=== PATIENT | female | born 1995 | race Caucasian/White ===

== ENCOUNTER 2021-08-11 09:56 | Emergency (ER) | payer MEDICAID, SELFPAY ==
[2021-08-11 10:00] VITALS: BP 141/84; PULSE 95; RESP 16; TEMP 36.6; O2SAT 99; BMI 30.7
--- NOTE | 2021-08-11 10:17 | ED_ITS ---
HPI - General Adult General Chief complaint: Abdominal Pain Stated complaint: abd pain Time Seen by Provider: 08/11/21 10:14 Source: patient Mode of arrival: ambulatory Limitations: no limitations History of Present Illness HPI narrative: Patient is a 25 year old female presenting to the emergency department today with lower abdominal pain and nausea. Patient states that she has had generalized abdominal pain and nausea for the last few days. Patient states that her last period was in June of 2021. Patient denies any dizziness, lightheadedness, vomiting, fever, chills, blurry vision, double vision, loss of vision, chest pain, difficulty breathing, shortness of breath, back pain, night sweats, pain with urination, increased urinary frequency, increased urinary urgency, blood in her urine or stool, syncope or a near syncopal episode, recent trauma or falls, bowel incontinence, bladder incontinence, bowel retention, bladder retention, or any other complaints at this time. Onset (ago): day(s) Location: abdomen Radiation: non-radiation Severity: mild Severity scale (1-10): 3 Quality: dull Pain Consistency: constant Relieving factors: none Exacerbating factors: none Associated symptoms: denies other symptoms Treatments prior to arrival: none Related Data Previous Rx's Medication Instructions Recorded ondansetron 4 mg disintegrating 4 mg PO Q8H 3 Days #9 tab 08/11/21 tablet Allergies Allergy/AdvReac Type Severity Reaction Status Date / Time No Known Allergies Allergy Verified 08/11/21 10:04 Review of Systems Constitutional: Constitutional: Reports no additional constitutional complaints, Denies chills, Denies fever(s) and Denies night sweats Eyes: Eyes: Reports no additional eye complaints, Denies blurry vision, Denies change in vision, Denies diplopia, Denies eye discharge, Denies loss of vision and Denies eye pain ENT: Denies dizziness Cardiovascular: Cardiovascular: Reports no additional cardiovascular complaints, Denies chest pain, Denies lightheadedness, Denies Loss of Consciousness and Denies dyspnea Respiratory: Respiratory: Reports no additional respiratory complaints and Denies dyspnea Gastrointestinal: Gastrointestinal: Reports no additional gastrointestinal complaints, Reports abdominal pain, Denies melena, Denies hematochezia, Denies change in bowel habits, Denies change in stool character, Reports nausea and Denies vomiting Genitourinary: Genitourinary: Denies hematuria, Denies urinary frequency, Denies dysuria, Denies urinary incontinence, Denies urinary hesitancy and Denies urinary urgency Musculoskeletal: Musculoskeletal: Reports no additional musculoskeletal complaints, Denies numbness and Denies tingling Neurologic: Denies dizziness, Denies loss of vision, Denies numbness and Denies tingling Psychiatric: Psychiatric: Reports no additional psychiatric complaints Endocrine: Endocrine: Reports no additional endocrine complaints Hematologic/Lymphatic: Hematologic/Lymphatic: Reports no additional hematologic/lymphatic complaints Allergic/Immunologic: Allergic/Immunologic: Reports no additional allergic/immunologic complaints FOR[facility], [facility] Past Medical History Attestation statement: The following information was validated with the patient. Source: old records reviewed Social History Social History Advance Directives: No Advance Directives Information Provided: No Physical Exam ED Vital Signs: Vital Signs - 24 hr 08/11/21 10:00 Temperature 97.9 F Pulse Rate 95 Respiratory Rate 16 Blood Pressure 141/84 H Pulse Oximetry 99 BMI result Body Mass Index 30.7 Const General: cooperative, no acute distress, alert and awake Nutritional Appearance: well nourished Orientation/consciousness: patient oriented x3 Limitations: no limitations HENMT Head: Yes normal to inspection and Yes atraumatic Ears: hearing grossly normal bilaterally and external ears normal General nose exam: Normal external nose present, no nasal discharge noted and no epistaxis Face and sinus: Yes normal facial exam, No abrasion and No laceration Mouth: Normal oral and palatal mucosa present, no drooling and no muffled voice Eyes General: appearance normal, both eyes and all related structures Periorbital: periorbital findings normal Eyelids: Yes eyelids normal Conjunctivae: conjunctivae normal Pupils: Equal, round and reactive pupils present EOM: EOMs intact bilaterally Neck Neck: Yes normal visual inspection, Yes full ROM and Yes no lymphadenopathy Chest Chest palpation & inspection: normal inspection of the chest Resp Effort & Inspection: normal respiratory effort and able to speak in complete sentences Auscultation: clear to auscultation bilaterally Cardio Rate: regular rate Rhythm: regular rhythm GI Inspection: Yes normal to inspection Palpation (GI): Soft to palpation, not firm, nontender, no guarding and not rigid Neuro General: patient oriented x3 and moves all extremities Cranial nerves: Yes Equal, round and reactive pupils present Cognition (Neuro): normal cognition Motor exam (neuro): 5/5 motor strength present throughout Sensory Exam: Normal double simultaneous stimulation for sensation Coordination: [id number] test normal Extrem General: Yes normal to inspection, Yes full ROM and Yes capillary refill normal Psych Appearance: grossly normal Mental Status: mental status grossly normal Affect: normal affect Attitude: cooperative Thought process: Normal thought process present Thought content: Normal thought content present Insight: Good insight present (Psych) Medical Decision Making MDM Narrative Medical decision making narrative: Patient is a 25 year old female presenting to the emergency department today with generalized abdominal pain and nausea. Patient initially reported vomiting but upon my questioning, states that she has only been nauseous and has not actually vomited. Patient's physical exam was unremarkable. Patient's blood work was unremarkable. Patient's urine showed no acute process or . I explained my physical exam findings as well as all test results to the patient. I answered all questions asked by the patient. I stressed the importance of the patient taking her medication as prescribed. I stressed the importance of the patient following up with her primary care provider. I stressed the importance of the patient returning to the emergency department immediately if her symptoms were to worsen or if she were to develop any dizziness, shortness of breath, difficulty breathing, chest pain, blurry vision, loss of vision, nausea, vomiting, abdominal pain, fever, chills, back pain, or any other complaints. Patient verbalized agreement and understanding with this treatment plan and discharge. Differential Diagnosis Differential Diagnosis: gastroenteritis, nausea Medical Records Medical records reviewed: Yes I reviewed the patient's medical records. Lab Data Lab results reviewed: Yes I reviewed the patient's lab results. Result diagrams: 08/11/21 11:15 08/11/21 11:15 Labs: Lab Results 08/11/21 08/11/21 08/11/21 Range/Units 11:06 11:06 11:15 WBC 5.3 (4.8-10.8) X10*3/uL RBC 5.09 (4.20-5.50) X10*6/uL Hgb 13.7 (12.0-16.0) g/dl Hct 42.3 (37.0-47.0) % MCV 83.1 (80.0-98.0) fL MCH 26.9 L (27.0-33.0) pg MCHC 32.4 (31.0-35.0) g/dl RDW 12.8 (11.0-16.0) % Plt Count 196 (160-400) X10*3/uL MPV 11.4 (9.4-12.3) fL Immature Gran % (Auto) 0.0 (0.0-0.4) % Neut % (Auto) 36.5 L (45-73) % Lymph % (Auto) 40.4 H (20-40) % Dewitt % (Auto) 22.3 H (2-11) % Eos % (Auto) 0.4 (0-4) % Baso % (Auto) 0.4 (0-2) % Lymph # (Auto) 2.1 (1.2-4.9) X10*3/uL Dewitt # (Auto) 1.2 (0.1-1.2) X10*3/uL Eos # (Auto) 0.0 (0.0-0.4) X10*3/uL Baso # (Auto) 0.0 (0.0-0.2) X10*3/uL Abs Immat Gran (auto) 0.00 (0.00-0.03) X10*3/uL Absolute Neuts (auto) 1.9 L (2.0-8.3) x10*3/uL Absolute Nucleated RBC 0.000 (0.0-0.012) X10*3/uL Nucleated RBC % (auto) 0.0 (0.0-0.2) /100WBC Smear Tech's Comments VERIFIED Sodium (135-145) mmol/L Potassium (3.3-5.1) mmol/L Chloride (96-108) mmol/L Carbon Dioxide (22-29) mmol/L Anion Gap (12-20) BUN (9-16) mg/dL Creatinine (0.5-1.4) mg/dL Estim Creat Clear Calc Estimated GFR Random Glucose (60-115) mg/dL Calcium (8.4-10.2) mg/dL Total Bilirubin (0.0-1.0) mg/dL AST (5-31) U/L ALT (0-31) U/L Alkaline Phosphatase (39-117) U/L Total Protein (6.5-8.0) g/dL Albumin (3.5-5.0) g/dL Beta HCG, Quant mIU/mL Urine Color YELLOW Urine Appearance CLOUDY Urine pH 7.0 (5.0-8.0) Ur Specific [place] 1.025 (1.005-1.025) Urine Protein TRACE (NEG-TRACE) MG/DL Urine Glucose (UA) NEG (NEG) MG/DL Urine Ketones NEG (NEG) MG/DL Urine Blood NEG (NEG) Urine Nitrite NEG (NEG) Ur Leukocyte Esterase NEG (NEG) Urine Test NEGATIVE (NEGATIVE) 08/11/21 Range/Units 11:15 WBC (4.8-10.8) X10*3/uL RBC (4.20-5.50) X10*6/uL Hgb (12.0-16.0) g/dl Hct (37.0-47.0) % MCV (80.0-98.0) fL MCH (27.0-33.0) pg MCHC (31.0-35.0) g/dl RDW (11.0-16.0) % Plt Count (160-400) X10*3/uL MPV (9.4-12.3) fL Immature Gran % (Auto) (0.0-0.4) % Neut % (Auto) (45-73) % Lymph % (Auto) (20-40) % Dewitt % (Auto) (2-11) % Eos % (Auto) (0-4) % Baso % (Auto) (0-2) % Lymph # (Auto) (1.2-4.9) X10*3/uL Dewitt # (Auto) (0.1-1.2) X10*3/uL Eos # (Auto) (0.0-0.4) X10*3/uL Baso # (Auto) (0.0-0.2) X10*3/uL Abs Immat Gran (auto) (0.00-0.03) X10*3/uL Absolute Neuts (auto) (2.0-8.3) x10*3/uL Absolute Nucleated RBC (0.0-0.012) X10*3/uL Nucleated RBC % (auto) (0.0-0.2) /100WBC Smear Tech's Comments Sodium 139 (135-145) mmol/L Potassium 4.3 (3.3-5.1) mmol/L Chloride 106 (96-108) mmol/L Carbon Dioxide 27 (22-29) mmol/L Anion Gap 10 L (12-20) BUN 8 L (9-16) mg/dL Creatinine 0.75 (0.5-1.4) mg/dL Estim Creat Clear Calc 124.8 Estimated GFR > 60 Random Glucose 93 (60-115) mg/dL Calcium 9.3 (8.4-10.2) mg/dL Total Bilirubin 0.2 (0.0-1.0) mg/dL AST 26 (5-31) U/L ALT 25 (0-31) U/L Alkaline Phosphatase 82 (39-117) U/L Total Protein 7.5 (6.5-8.0) g/dL Albumin 4.2 (3.5-5.0) g/dL Beta HCG, Quant < 2 mIU/mL Urine Color Urine Appearance Urine pH (5.0-8.0) Ur Specific [place] (1.005-1.025) Urine Protein (NEG-TRACE) MG/DL Urine Glucose (UA) (NEG) MG/DL Urine Ketones (NEG) MG/DL Urine Blood (NEG) Urine Nitrite (NEG) Ur Leukocyte Esterase (NEG) Urine Test (NEGATIVE) Discharge Plan Discharge Clinical Impression: Gastroenteritis Patient Disposition: Home, Self-Care Instructions: Gastroenteritis (DC) Additional Instructions: Follow up with your primary care provider. Return to the emergency department immediately if your symptoms worsen or if you develop any dizziness, shortness of breath, difficulty breathing, chest pain, blurry vision, loss of vision, nausea, vomiting, abdominal pain, fever, chills, back pain, or any other complaints. Prescriptions: New ondansetron 4 mg tablet,disintegrating 4 mg PO Q8H 3 Days Qty: 9 0RF Referrals: [facility] [place] Family [facility] [Provider Group] [facility] [place] [facility] [Provider Group] [facility] [place] [facility] [Provider Group] Stand Alone Forms: Work/School Release Interventions: ED Discharge Assessment Last Done: 08/11/21 12:49 Discharge Date/Time: 08/11/21 12:51 Print Language: Occitan
[2021-08-11 11:20] LABS: Basophils Percent Auto 0.4 % (0-2); Eosinophils Percent Auto 0.4 % (0-4); Hematocrit 42.3 % (37.0-47.0); Hemoglobin 13.7 g/dl (12.0-16.0); Lymphocytes Absolute Auto 2.1 X10*3/uL (1.2-4.9); Lymphocytes Percent Auto 40.4 % (20-40); MANUAL DIFF FLAG SCAN; Mean Corpuscular HGB Conc 32.4 g/dl (31.0-35.0); Mean Corpuscular Hemoglobin 26.9 pg (27.0-33.0); Mean Corpuscular Volume 83.1 fL (80.0-98.0); Mean Platelet Volume 11.4 fL (9.4-12.3); Monocytes Absolute Auto 1.2 X10*3/uL (0.1-1.2); Monocytes Percent Auto 22.3 % (2-11); Neutrophils Absolute Auto 1.9 x10*3/uL (2.0-8.3); Neutrophils Percent Auto 36.5 % (45-73); Platelet Count 196 X10*3/uL (160-400); Red Blood Count 5.09 X10*6/uL (4.20-5.50); Red Cell Distribution Width 12.8 % (11.0-16.0); SCAN SMEAR FLAG 1; White Blood Count 5.3 X10*3/uL (4.8-10.8)
[2021-08-11 11:23] LABS: UPreg QC Valid YES; Urine Pregnancy NEGATIVE (NEGATIVE)
[2021-08-11 11:25] LABS: Appearance Urine CLOUDY; Color Urine YELLOW; Glucose Urine UA NEG (NEG); Leukocyte Esterase Urine NEG (NEG); Nitrite Urine NEG (NEG); Specific Gravity - Urine 1.025 (1.005-1.025); Urine Blood NEG (NEG); Urine Ketones NEG (NEG); Urine Protein TRACE MG/DL (NEG-TRACE)
[2021-08-11 11:37] LABS: Alanine Aminotransferase 25 U/L (0-31); Albumin Level 4.2 g/dL (3.5-5.0); Alkaline Phosphatase 82 U/L (39-117); Anion Gap 10 (12-20); Aspartate Amino Transferase 26 U/L (5-31); Bilirubin Total 0.2 mg/dL (0.0-1.0); Blood Urea Nitrogen 8 mg/dL (9-16); Calcium 9.3 mg/dL (8.4-10.2); Carbon Dioxide 27 mmol/L (22-29); Chloride 106 mmol/L (96-108); Creatinine Clr Calc Pharmacy 124.8; Estimated Glomerular Filt Rate > 60; Glucose Random 93 mg/dL (60-115); Potassium 4.3 mmol/L (3.3-5.1); Sodium 139 mmol/L (135-145); Total Protein 7.5 g/dL (6.5-8.0)
[2021-08-11 11:40] LABS: SLIDE REVIEW VERIFIED
[2021-08-11 11:43] LABS: HCG Quantitative < 2 mIU/mL
== END 2021-08-11 12:51 | disposition home or self-care (01) ==
PROVIDERS: Physician Assistant Medical; Emergency Provider Emergency Medicine
DX: K52.9 Noninfective gastroenteritis and colitis, unspecified (principal); R10.30 Lower abdominal pain, unspecified; Z79.899 Other long term (current) drug therapy
CPT/HCPCS: 36415; 80053; 81003; 81025; 84702; 85025; 99281; 99283

== ENCOUNTER 2021-09-02 11:19 | Emergency (ER) | payer OTHER, SELFPAY ==
--- NOTE | ~2021-09-02 | US_ITS ---
EXAMINATION: US PELVIS CLINICAL INFORMATION: Abnormal vaginal bleeding COMPARISON: None TECHNIQUE: Ultrasound of the pelvis is performed using both transabdominal and transvaginal transducers along with Doppler. Transvaginal imaging is performed due to inadequate visualization transabdominally. FINDINGS: Uterus: The uterus is anteverted and measures 7.9 x 4.7 x 6.6 cm The double wall endometrial thickness is 0.2 cm slightly heterogeneous.. There is a hypoechoic lesion within the endometrium measuring 0.4 x 0.3 x 0.4 cm suggestive of small polyp No visible fibroid. Adnexa: Both ovaries are visualized. There is normal color flow to the adnexa. There is no ovarian torsion. There is no pelvic ascites or fluid collection. Right ovary measures 5.4 x 2.6 x 3.4 CM and volume 23.4 mL. There is anechoic cyst measuring 4.5 x 1.5 x 1.7 cm. A second cyst with septation measures 2.5 x 2.5 x 2.3 cm. Left ovary measures 2.9 x 2.1 x 1.9 cm and volume 6.1 mL. There is a complex cyst measuring 1.3 x 1.1 x 2.1 cm. US/US pelvic and transvaginal IMPRESSION: Heterogeneous uterus and endometrium with a likely small polyp within the endometrial canal. Bilateral ovarian cystic complex cyst is noted in the left ovary. There is no free fluid in cul-de-sac
--- NOTE | ~2021-09-02 | CT_ITS ---
EXAMINATION: CT ABDOMEN AND PELVIS WITHOUT CONTRAST CLINICAL INFORMATION: Left flank/suprapubic abdominal pain COMPARISON: Same day renal ultrasound TECHNIQUE: Multidetector volumetric imaging was performed from the superior aspect of the liver through the pubic symphysis. Sagittal and coronal reformatted images were obtained on the technologist's workstation. This CT examination was performed using dose optimization techniques as appropriate, variously including the following: *Automated exposure control *Adjustment of mA and/or kV according to patient size (this includes techniques or standardized protocols for targeted exams where dose is matched to indication/reason for exam; i.e. extremities or head) *Use of iterative reconstruction technique DLP: 690 mGy-cm FINDINGS: Visualized lung bases are well aerated. The liver demonstrates normal size, contour and attenuation. The gallbladder is normal in appearance. The pancreas, spleen and adrenal glands are unremarkable. Symmetrically sized kidneys. No renal calculi or hydronephrosis bilaterally. Normal caliber loops of small and large bowel. Mild colonic stool burden. Normal appendix. Normal caliber abdominal aorta. No retroperitoneal lymphadenopathy. The bladder is normal in appearance. Unremarkable CT appearance of the uterus. Bilateral adnexal cysts are reidentified but better evaluated on corresponding pelvic ultrasound. No gross free pelvic fluid. No inguinal lymphadenopathy. No acute osseous abnormality. CT/CT abdomen pelvis wo con IMPRESSION: There is no CT evidence for acute abnormality within the abdomen or pelvis. Bilateral adnexal cysts are redemonstrated but better visualized on corresponding pelvic ultrasound. Fleischner guidelines were followed.
--- NOTE | ~2021-09-02 | US_ITS ---
EXAMINATION: US PELVIS CLINICAL INFORMATION: Abnormal vaginal bleeding COMPARISON: None TECHNIQUE: Ultrasound of the pelvis is performed using both transabdominal and transvaginal transducers along with Doppler. Transvaginal imaging is performed due to inadequate visualization transabdominally. FINDINGS: Uterus: The uterus is anteverted and measures 7.9 x 4.7 x 6.6 cm The double wall endometrial thickness is 0.2 cm slightly heterogeneous.. There is a hypoechoic lesion within the endometrium measuring 0.4 x 0.3 x 0.4 cm suggestive of small polyp No visible fibroid. Adnexa: Both ovaries are visualized. There is normal color flow to the adnexa. There is no ovarian torsion. There is no pelvic ascites or fluid collection. Right ovary measures 5.4 x 2.6 x 3.4 CM and volume 23.4 mL. There is anechoic cyst measuring 4.5 x 1.5 x 1.7 cm. A second cyst with septation measures 2.5 x 2.5 x 2.3 cm. Left ovary measures 2.9 x 2.1 x 1.9 cm and volume 6.1 mL. There is a complex cyst measuring 1.3 x 1.1 x 2.1 cm. US/US pelvic ovarian doppler IMPRESSION: Heterogeneous uterus and endometrium with a likely small polyp within the endometrial canal. Bilateral ovarian cystic complex cyst is noted in the left ovary. There is no free fluid in cul-de-sac
[2021-09-02 11:28] VITALS: BP 139/88; PULSE 112; RESP 18; TEMP 36.9; O2SAT 98; BMI 32.9
--- NOTE | 2021-09-02 15:27 | ED.FEMALEGU ---
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 She reports severe lower abdominal pain radiating to her left flank. She reports that her menstrual periods usually last 3 days with heavy bleeding then subsides over the next few days and usually completed or finished within 7 days. She reports she has never had her menstrual period for this long in the past. She denies any fevers, headaches, change in vision, nausea/vomiting, chest pain or shortness of breath, dyspnea on exertion, orthopnea, dysuria, hematuria, abnormal vaginal discharge, thoughts of STDs, rashes, recent falls or trauma to the abdomen or back, sick contacts or travel or any other symptoms complaints or concerns at this time. She reports that she does not believe she is at this time although did not take a home test. MD elicited complaint: vaginal bleeding and back pain Onset (ago): month(s) (1) Location of symptoms: suprapubic Severity: severe Female Urogenital Radiation: L Flank Severity scale (1-10): >10 Quality of pain: cramping, sharp and aching Consistency: constant and progressively worsening Vaginal discharge: none Vaginal bleeding: heavy, bright red, clots and # pads per hour (1) Exacerbating factors: none Relieving factors: none Associated symptoms: abdominal pain and other (dizziness started yesterday ) Treatment prior to arrival: none Sexual activity: Yes Patient : No Possible : at home test not taken Related Data : 4 Para: 0 Total number of abortions (spontaneous and elective): 4 Previous Rx's Medication Instructions Recorded ondansetron 4 mg disintegrating 4 mg PO Q8H 3 days #9 tabs 08/11/21 tablet acetaminophen 500 mg tablet 1,000 mg PO QID PRN fever or pain 09/02/21 (Tylenol Extra Strength) #14 tabs desogestrel 0.15 mg-ethinyl 1 tab PO DAILY #84 tabs 09/02/21 estradiol 0.03 mg tablet (Apri) nitrofurantoin 100 mg PO BID 7 days #14 caps 09/02/21 monohydrate/macrocrystals 100 mg capsule (Macrobid) oxycodone 5 mg tablet 5 mg PO Q6H PRN pain #14 tabs 09/02/21 Allergies Allergy/AdvReac Type Severity Reaction Status Date / Time No Known Allergies Allergy Verified 08/11/21 10:04 Review of Systems Review of Systems: Constitutional : No Fever, No Chills ENT/Mouth : No sore throat, No Rhinorrhea Eyes: No Eye Pain, No Redness Cardiovascular : No Chest Pain, No SOB Respiratory : No Cough, No Sputum, No Wheezing Gastrointestinal : + abdominal pain, No Nausea, No Vomiting, No Diarrhea Genitourinary : + irregular bleeding, + left falnk/back pain, No Dysuria, No Urinary Frequency Musculoskeletal : No Myalgias Skin : No rash Neuro : + dizziness, No Weakness, No Headache Psych : No Anxiety/Panic, No Depression Heme/Lymph: No bruising, No Lymphadenopathy Endocrine : No Polyuria, No Polydipsia Yes all other systems are reviewed and are negative [facility] Past Medical History Attestation statement: The following information was validated with the patient. Source: old records reviewed, obtained from family and nursing notes reviewed : 4 Para: 0 Total number of abortions (spontaneous and elective): 4 Physical Exam Vital Signs: Vital Signs: Last Vital Signs Temp 98.5 F 09/02/21 18:55 Pulse 74 09/02/21 18:55 Resp 18 09/02/21 18:55 BP 124/81 09/02/21 18:55 Pulse Ox 98 09/02/21 18:55 O2 Del Method 09/02/21 18:55 BMI result Body Mass Index 32.9 vital signs have been reviewed as normal and appeared to be correct. Blood pressure normal. Heart rate 112. Respiration rate normal. Temperature normal. Oxygen saturation normal. Appearance: Alert. Oriented X3. No acute distress. Head: Normal external exam. Normocephalic. Atraumatic. Eyes: PERRLA. EOMI. Conjunctiva and sclera normal. Eyelids normal. ENT: Pharynx normal. Uvula midline. Moist mucous membranes. No trismus noted. No drooling noted. No muffled voice noted. Neck: Normal inspection. Neck supple. FROM. No adenopathy. Thyroid Normal. No meningeal signs. No neck mass noted. CVS: Normal heart rate and rhythm. Heart sound normal. No murmurs noted. Pulses normal throughout. Respiratory: No respiratory distress. Painless inspiration. Breath sounds normal. No wheezes/rales/rhonchi noted. Chest nontender. No accessory muscle usage noted or decreased air movement noted. Abdomen: Soft and moderate tenderness palpation to the left lower quadrant/left flank/suprapubic area with guarding. Bowel sounds normal in all 4 quadrants. No distention noted. No organomegaly noted. No visible injury noted. Negative Rovsing sign. Negative obturator's sign. Negative psoas sign. Negative Gonzalez sign. : Supervised by ANGÉLICA Pressley. Normal external appearance of urethra. No lesions/lacerations or discharge or tenderness noted. Speculum exam normal appearance/palpation of vagina normal. No abnormal vaginal discharge noted. Otherwise no vaginal erythema. No foreign bodies noted. When I place the spectulum in she had a a puddle of blood and small amount of clots although no active bleeding. No vaginal laceration/lesions or noted. No tissue present in vagina. No vaginal mass noted. No vaginal swelling noted. No vaginal tenderness noted. Normal appearance of cervix. Normal palpation of cervix. Cervical os is closed. No abnormal cervical discharge noted. No cervical lesion/mass. No Bartholin cyst noted. No cervical motion tenderness noted. Negative chandelier sign. Normal bimanual exam. Uterine size normal. Bladder normal to palpation. Uterine consistency normal. Normal cervical palpation. Uterine mobility normal. Uterine shape normal. Normal adnexa. Normal rectovaginal exam. Back: + left CVA tenderness. No Right CVA tenderness noted. Full range of motion noted. Skin: Skin warm and dry. Normal skin color. Normal skin turgor. No rashes/lesions/lacerations noted. Extremities: No lower extremity edema. Extremities exhibit normal range of motion. Extremities nontender. Neuro: Oriented X 3. No motor deficit. No sensory deficit. Reflexes normal. Course Course Course Narrative: 13:20pm - 25-year-old female c a PMHX of 3-4 miscarriages and 1 ectopic presenting to the ED with complaints of abnormal vaginal bleeding for approximately 1 month which is worsened within the past few days worse she is now bleeding clots and since yesterday has been having some dizziness. She reports severe lower abdominal pain radiating to her left flank. She reports that her menstrual periods usually last 3 days with heavy bleeding then subsides over the next few days and usually completed or finished within 7 days. She reports she has never had her menstrual period for this long in the past. Plan: Labs, UA, gonorrhea/chlamydia swab, bacterial vaginosis swab, Trichomonas swab, yeast swab, pelvic/ovarian/transvaginal ultrasound, type and screen. Provide 4 mg of Zofran and 4 mg of morphine for the patient's pain and re-evaluate. Reevaluation(s) Reevaluation #1: - WBC at 11,000 - BUN 21. Otherwise all other labs WNL. - transvaginal/pelvic/Doppler ultrasound revealed polyps, bilateral ovarian cyst therefore I discussed this case with Dr. Capps he reports as long as the patient does not have any medical history and does not have any contraindications patient can be started on control Apri and he also wants to see her in the office and he will talk to her about her options. - will obtain a CT scan abdomen pelvis without IV contrast to evaluate for any other acute processes also waiting for UA for possible UTI versus pyelo will re-evaluate. Time: 17:40 Reevaluation #2: - CT scan of abdomen and pelvis revealed bilateral adnexal cyst otherwise no other acute processes noted. - therefore explained to the patient that she should give us a UA and that we will send her home with the control and symptomatic treatment instructions to follow-up with Dr. Capps and I explained her that he will be discussing with her many possible treatment options for further evaluation treatment. Patient understands agrees with this plan. Time: 17:57 MDM - Female Genitourinary Medical Records Attestation: I reviewed the patient's medical records. Lab Data Attestation: I reviewed the patient's lab results. Result diagrams: 09/02/21 16:25 09/02/21 16:13 Labs: Lab Results 09/02/21 09/02/21 09/02/21 Range/Units 16:13 16:25 16:25 WBC 11.6 H (4.8-10.8) X10*3/uL RBC 4.88 (4.20-5.50) X10*6/uL Hgb 13.0 (12.0-16.0) g/dl Hct 40.5 (37.0-47.0) % MCV 83.0 (80.0-98.0) fL MCH 26.6 L (27.0-33.0) pg MCHC 32.1 (31.0-35.0) g/dl RDW 12.8 (11.0-16.0) % Plt Count 257 D (160-400) X10*3/uL MPV 11.3 (9.4-12.3) fL Immature Gran % (Auto) 0.3 (0.0-0.4) % Neut % (Auto) 71.1 (45-73) % Lymph % (Auto) 21.2 (20-40) % Shannon % (Auto) 6.6 (2-11) % Eos % (Auto) 0.4 (0-4) % Baso % (Auto) 0.4 (0-2) % Lymph # (Auto) 2.5 (1.2-4.9) X10*3/uL Shannon # (Auto) 0.8 (0.1-1.2) X10*3/uL Eos # (Auto) 0.1 (0.0-0.4) X10*3/uL Baso # (Auto) 0.1 (0.0-0.2) X10*3/uL Abs Immat Gran (auto) 0.04 H (0.00-0.03) X10*3/uL Absolute Neuts (auto) 8.2 (2.0-8.3) x10*3/uL Absolute Nucleated RBC 0.000 (0.0-0.012) X10*3/uL Nucleated RBC % (auto) 0.0 (0.0-0.2) /100WBC PT 12.3 (9.9-13.0) SEC INR 1.1 (0.9-1.1) Sodium 138 (135-145) mmol/L Potassium 4.1 (3.3-5.1) mmol/L Chloride 105 (96-108) mmol/L Carbon Dioxide 21 L (22-29) mmol/L Anion Gap 16 (12-20) BUN 9 (9-16) mg/dL Creatinine 0.70 (0.5-1.4) mg/dL Estim Creat Clear Calc 123.7 Estimated GFR > 60 Random Glucose 70 (60-115) mg/dL Calcium 9.5 (8.4-10.2) mg/dL Magnesium 2.0 (1.6-2.6) mg/dL Total Bilirubin 0.3 (0.0-1.0) mg/dL AST 19 (5-31) U/L ALT 14 (0-31) U/L Alkaline Phosphatase 87 (39-117) U/L Total Protein 7.8 (6.5-8.0) g/dL Albumin 4.5 (3.5-5.0) g/dL Beta HCG, Quant < 2 mIU/mL Urine Color Urine Appearance Urine pH (5.0-8.0) Ur Specific Sherrill (1.005-1.025) Urine Protein (NEG-TRACE) MG/DL Urine Glucose (UA) (NEG) MG/DL Urine Ketones (NEG) MG/DL Urine Blood (NEG) Urine Nitrite (NEG) Ur Leukocyte Esterase (NEG) Urine RBC (0) /HPF Urine WBC (0-4) /HPF Ur Squamous Epith Cells /LPF Urine Bacteria /LPF Blood Type 09/02/21 09/02/21 Range/Units 16:25 18:30 WBC (4.8-10.8) X10*3/uL RBC (4.20-5.50) X10*6/uL Hgb (12.0-16.0) g/dl Hct (37.0-47.0) % MCV (80.0-98.0) fL MCH (27.0-33.0) pg MCHC (31.0-35.0) g/dl RDW (11.0-16.0) % Plt Count (160-400) X10*3/uL MPV (9.4-12.3) fL Immature Gran % (Auto) (0.0-0.4) % Neut % (Auto) (45-73) % Lymph % (Auto) (20-40) % Shannon % (Auto) (2-11) % Eos % (Auto) (0-4) % Baso % (Auto) (0-2) % Lymph # (Auto) (1.2-4.9) X10*3/uL Shannon # (Auto) (0.1-1.2) X10*3/uL Eos # (Auto) (0.0-0.4) X10*3/uL Baso # (Auto) (0.0-0.2) X10*3/uL Abs Immat Gran (auto) (0.00-0.03) X10*3/uL Absolute Neuts (auto) (2.0-8.3) x10*3/uL Absolute Nucleated RBC (0.0-0.012) X10*3/uL Nucleated RBC % (auto) (0.0-0.2) /100WBC PT (9.9-13.0) SEC INR (0.9-1.1) Sodium (135-145) mmol/L Potassium (3.3-5.1) mmol/L Chloride (96-108) mmol/L Carbon Dioxide (22-29) mmol/L Anion Gap (12-20) BUN (9-16) mg/dL Creatinine (0.5-1.4) mg/dL Estim Creat Clear Calc Estimated GFR Random Glucose (60-115) mg/dL Calcium (8.4-10.2) mg/dL Magnesium (1.6-2.6) mg/dL Total Bilirubin (0.0-1.0) mg/dL AST (5-31) U/L ALT (0-31) U/L Alkaline Phosphatase (39-117) U/L Total Protein (6.5-8.0) g/dL Albumin (3.5-5.0) g/dL Beta HCG, Quant mIU/mL Urine Color RED A Urine Appearance CLOUDY Urine pH 5.0 (5.0-8.0) Ur Specific Sherrill 1.025 (1.005-1.025) Urine Protein 1+ H (NEG-TRACE) MG/DL Urine Glucose (UA) NEG (NEG) MG/DL Urine Ketones >=80 (NEG) MG/DL Urine Blood 3+ H (NEG) Urine Nitrite NEG (NEG) Ur Leukocyte Esterase TRACE H (NEG) Urine RBC TNTC H (0) /HPF Urine WBC 0-2 (0-4) /HPF Ur Squamous Epith Cells 1+ /LPF Urine Bacteria NONE /LPF Blood Type B Positive Imaging Data Transvaginal/pelvic/Doppler ultrasound: Attestation: I personally reviewed and interpreted this imaging study as follows: Radiologist's impression: FINDINGS: Uterus: The uterus is anteverted and measures 7.9 x 4.7 x 6.6 cm The double wall endometrial thickness is 0.2 cm slightly heterogeneous.. There is a hypoechoic lesion within the endometrium measuring 0.4 x 0.3 x 0.4 cm suggestive of small polyp ?No visible fibroid. Adnexa: Both ovaries are visualized. There is normal color flow to the adnexa. There is no ovarian torsion.? There is no pelvic ascites or fluid collection. Right ovary measures 5.4 x 2.6 x 3.4 CM and volume 23.4 mL. There is anechoic cyst measuring 4.5 x 1.5 x 1.7 cm. A second cyst with septation measures 2.5 x 2.5 x 2.3 cm. Left ovary measures 2.9 x 2.1 x 1.9 cm and volume 6.1 mL. There is a complex cyst measuring 1.3 x 1.1 x 2.1 cm. US/US pelvic and transvaginal IMPRESSION: Heterogeneous uterus and endometrium with a likely small polyp within the endometrial canal. ? Bilateral ovarian cystic complex cyst is noted in the left ovary. ? There is no free fluid in cul-de-sac CT scan abdomen pelvis without IV contrast: Attestation: I personally reviewed and interpreted this imaging study as follows: Radiologist's impression: FINDINGS: Visualized lung bases are well aerated. The liver demonstrates normal size, contour and attenuation. The gallbladder is normal in appearance. The pancreas, spleen and adrenal glands are unremarkable. Symmetrically sized kidneys. No renal calculi or hydronephrosis bilaterally. Normal caliber loops of small and large bowel. Mild colonic stool burden. Normal appendix. Normal caliber abdominal aorta. No retroperitoneal lymphadenopathy. The bladder is normal in appearance. Unremarkable CT appearance of the uterus. Bilateral adnexal cysts are reidentified but better evaluated on corresponding pelvic ultrasound. No gross free pelvic fluid. No inguinal lymphadenopathy. No acute osseous abnormality. CT/CT abdomen pelvis wo con IMPRESSION: There is no CT evidence for acute abnormality within the abdomen or pelvis. Bilateral adnexal cysts are redemonstrated but better visualized on corresponding pelvic ultrasound.? ? Fleischner guidelines were followed. Critical Care Time Critical Care Time Critical Care Time: Yes Total Critical Care Time: 60 Attestation: I personally attest to this time spent taking care of the patient Discharge Plan Discharge Clinical Impression: Metrorrhagia, Uterine polyp, Bilateral ovarian cysts, UTI (urinary tract infection) Patient Disposition: Home, Self-Care Instructions: Dysfunctional Uterine Bleeding (ED), Ovarian Cyst (ED), Endometrial Polyps (DC) Additional Instructions: If you have any worsening vaginal bleeding or any fevers or any dizziness or shortness of breath or chest pain you need to return immediately. Please follow-up with the OBGYN as he wants to see you in the office within the next few weeks. Also follow-up with her primary care provider. We are starting you on a control you will take this daily and this should help your vaginal bleeding. You have pending lab results if any are positive you will be contacted within 3-5 days. Si tiene alg?n sangrado vaginal que empeora o fiebre o cualquier mareo o dificultad para respirar o dolor en el pecho, debe regresar de inmediato. Por favor, delmer un seguimiento con el ginec?logo obstetra ya que quiere verlo en la oficina dentro de las pr?ximas semanas. Tambi?n delmer un seguimiento con mortensen proveedor de atenci?n primaria. Estamos comenzando con un m?todo anticonceptivo que peg? diariamente y esto deber?a ayudar a mortensen sangrado vaginal. Usted tiene resultados de laboratorio pendientes si alguno es positivo, se le contactar? dentro de 3-5 d?as. Prescriptions: New desogestrel-ethinyl estradiol [Apri] 0.15-0.03 mg tablet 1 tab PO DAILY Qty: 84 0RF acetaminophen [Tylenol Extra Strength] 500 mg tablet 1,000 mg PO QID PRN (Reason: fever or pain) Qty: 14 0RF oxycodone 5 mg tablet 5 mg PO Q6H PRN (Reason: pain) Qty: 14 0RF Rx Instructions: Partial Fill upon patient request. nitrofurantoin monohyd/m-cryst [Macrobid] 100 mg capsule 100 mg PO BID 7 Days Qty: 14 0RF Rx Instructions: must administer with a meal/food No Action ondansetron 4 mg tablet,disintegrating 4 mg PO Q8H 3 Days Qty: 9 0RF Referrals: Jose Capps MD [Physician] - 1 week (Call Sunday to make a follow-up appointment within 1 week) Stand Alone Forms: Work/School Release Interventions: ED Discharge Assessment Last Done: 09/02/21 18:56 Discharge Date/Time: 09/02/21 18:59 Print Language: Lithuanian
[2021-09-02 16:13] VITALS: BP 124/68; PULSE 85; RESP 18; TEMP 37; O2SAT 97
[2021-09-02] MEDS: Morphine Sulfate 4 MG/ML CARTRIDGE IM (16:18)
[2021-09-02] MEDS: Ondansetron ODT 4 MG TAB.RAPDIS TRANSLINGU (16:18)
[2021-09-02 16:29] LABS: MANUAL DIFF FLAG NO
[2021-09-02 16:32] LABS: Basophils Absolute Auto 0.1 X10*3/uL (0.0-0.2); Basophils Percent Auto 0.4 % (0-2); Eosinophils Absolute Auto 0.1 X10*3/uL (0.0-0.4); Eosinophils Percent Auto 0.4 % (0-4); Hematocrit 40.5 % (37.0-47.0); Imm Gran Abs Auto 0.04 X10*3/uL (0.00-0.03); Imm Gran Pct Auto 0.3 % (0.0-0.4); Lymphocytes Absolute Auto 2.5 X10*3/uL (1.2-4.9); Lymphocytes Percent Auto 21.2 % (20-40); Mean Corpuscular HGB Conc 32.1 g/dl (31.0-35.0); Mean Corpuscular Hemoglobin 26.6 pg (27.0-33.0); Mean Platelet Volume 11.3 fL (9.4-12.3); Monocytes Absolute Auto 0.8 X10*3/uL (0.1-1.2); Monocytes Percent Auto 6.6 % (2-11); Neutrophils Absolute Auto 8.2 x10*3/uL (2.0-8.3); Neutrophils Percent Auto 71.1 % (45-73); Platelet Count 257 X10*3/uL (160-400); Red Blood Count 4.88 X10*6/uL (4.20-5.50); Red Cell Distribution Width 12.8 % (11.0-16.0); White Blood Count 11.6 X10*3/uL (4.8-10.8)
[2021-09-02 16:32] LABS: Alanine Aminotransferase 14 U/L (0-31); Albumin Level 4.5 g/dL (3.5-5.0); Alkaline Phosphatase 87 U/L (39-117); Anion Gap 16 (12-20); Aspartate Amino Transferase 19 U/L (5-31); Bilirubin Total 0.3 mg/dL (0.0-1.0); Blood Urea Nitrogen 9 mg/dL (9-16); Calcium 9.5 mg/dL (8.4-10.2); Carbon Dioxide 21 mmol/L (22-29); Chloride 105 mmol/L (96-108); Creatinine Clr Calc Pharmacy 123.7; Estimated Glomerular Filt Rate > 60; Glucose Random 70 mg/dL (60-115); Potassium 4.1 mmol/L (3.3-5.1); Sodium 138 mmol/L (135-145); Total Protein 7.8 g/dL (6.5-8.0)
[2021-09-02 16:39] LABS: HCG Quantitative < 2 mIU/mL
[2021-09-02 16:42] LABS: INTERNATIONAL NORM RATIO 1.1 (0.9-1.1); Prothrombin Time 12.3 SEC (9.9-13.0)
--- NOTE | 2021-09-02 17:31 | P.CONOB_ITS ---
DATA [employer]ING [employer]NER - CN: HPI Data of Consult Consult date: 09/02/21 Primary Care Provider: None Physician Consult Narrative Narrative: I was consulted on Krystal Guzman who is a 25 year old female presenting to the ED with a month history of prolonged vaginal bleeding associated with passage of blood clots and pelvic cramping. In addition the patient is complaining of lower abdominal pain radiating to her left flank.? .? No associated feve or chills, nausea/vomiting, dysuria, abnormal vaginal discharge. The workup in the emergency room included the following: CBC, chemistry, urinalysis within normal, urine test negative. Pelvic ultrasound showed bilateral complex ovarian cysts 2.1 and 2.5 cm on the right and left respectively, and 0.4 cm endometrial polyp. cc:: CC: OB [facility] Social History Social History Advance Directives: No Advance Directives Information Provided: No Patient : No Meds Allergies Allergy/AdvReac Type Severity Reaction Status Date / Time No Known Allergies Allergy Verified 08/11/21 10:04 [employer] Physical Exam Vitals Vital signs: Temp Pulse Resp BP Pulse Ox O2 Del Method 98.6 F 85 18 124/68 97 09/02/21 16:13 09/02/21 16:13 09/02/21 16:13 09/02/21 16:13 09/02/21 16:13 09/02/21 16:13 BMI result Body Mass Index 32.9 Additional Comments: Reported to be the following: Abdominal exam is soft nontender, positive left CVA tenderness and pelvic exam no evidence of active vaginal bleeding, no cervical motion tenderness, normal uterine and adnexal exam [employer] - Results Labs CBC & Chem 7: 09/02/21 16:25 09/02/21 16:13 Labs: Short CBC 09/02/21 Range/Units 16:25 WBC 11.6 H (4.8-10.8) X10*3/uL Hgb 13.0 (12.0-16.0) g/dl Hct 40.5 (37.0-47.0) % Plt Count 257 D (160-400) X10*3/uL BMP 09/02/21 16:13 Sodium 138 Potassium 4.1 Chloride 105 Carbon Dioxide 21 L BUN 9 Creatinine 0.70 Calcium 9.5 Liver Function 09/02/21 Range/Units 16:13 Total Bilirubin 0.3 (0.0-1.0) mg/dL AST 19 (5-31) U/L ALT 14 (0-31) U/L Alkaline Phosphatase 87 (39-117) U/L Albumin 4.5 (3.5-5.0) g/dL Imaging US - abdomen: Radiologist's impression: ITS Impressions Doppler Study Ultrasound 09/02/21 15:33 IMPRESSION: Heterogeneous uterus and endometrium with a likely small polyp within the endometrial canal. Bilateral ovarian cystic complex cyst is noted in the left ovary. There is no free fluid in cul-de-sac Pelvic/Transvag US 09/02/21 15:33 IMPRESSION: Heterogeneous uterus and endometrium with a likely small polyp within the endometrial canal. Bilateral ovarian cystic complex cyst is noted in the left ovary. There is no free fluid in cul-de-sac Abdomen/Pelvis CT 09/02/21 17:19 IMPRESSION: There is no CT evidence for acute abnormality within the abdomen or pelvis. Bilateral adnexal cysts are redemonstrated but better visualized on corresponding pelvic ultrasound. Fleischner guidelines were followed. Assessment and Plan (1) Abnormal uterine bleeding: Status: Acute Recommended the following to BROOKLYN Oquendo: Start Apri 1 tablet p.o. q.d. and follow-up in the office within few days. Instructions to be given to patient to come back to the emergency room in case of heavy vaginal bleeding (2) Complex cyst of both ovaries: Status: Acute Discussed with BROOK[place]N Oquendo the differential diagnosis of complex ovarian cysts including but not limited to : Benign, premalignant or malignant ovarian neoplasm, recommend close follow-up in the office for counseling and discussion of options of treatment (3) Endometrial polyp: Status: Acute Ultrasound showed 0.4 cm endometrial polyp, recommended a close follow-up in the office for counseling regarding options of treatment including hysteroscopic polypectomy . (4) Abdominal pain: Status: Acute Since bilateral ovarian cyst are 2.5 cm and below, normal pelvic exam with no evidence of tenderness, urine test is negative , I would defer the management of the abdominal pain with left CVA tenderness to the ER team for further management. I spent 25 minutes reviewing the chart, communicating with the case with the ER provider and documenting in the medical record
[2021-09-02 18:41] LABS: Appearance Urine CLOUDY; Color Urine RED; Glucose Urine UA NEG (NEG); Leukocyte Esterase Urine TRACE (NEG); Nitrite Urine NEG (NEG); Specific Gravity - Urine 1.025 (1.005-1.025); UACC Culture Trigger NO; Urine Blood 3+ (NEG); Urine Ketones >=80 MG/DL (NEG); Urine Protein 1+ MG/DL (NEG-TRACE)
[2021-09-02 18:48] LABS: RBC Urine TNTC /HPF (0); Squamous Epithelial Cell Urine 1+ /LPF; WBC Urine 0-2 /HPF (0-4)
[2021-09-02 18:55] VITALS: BP 124/81; PULSE 74; RESP 18; TEMP 36.9; O2SAT 98
[2021-09-03 03:23] LABS: CT PCR NOT DETECTED (Not Detect.); NG PCR NOT DETECTED (Not Detect.)
[2021-09-03 13:38] LABS: BV Int Neg Control Negative (Negative); BV Int Pos Control Positive (Positive)
== END 2021-09-02 18:59 | disposition home or self-care (01) ==
PROVIDERS: Physician Assistant Medical; Emergency Provider Emergency Medicine
DX: N39.0 Urinary tract infection, site not specified (principal); N84.0 Polyp of corpus uteri; N92.1 Excessive and frequent menstruation with irregular cycle; N83.291 Other ovarian cyst, right side; N83.292 Other ovarian cyst, left side
CPT/HCPCS: 36415; 74176; 76830; 76856; 80053; 81001; 83735; 84702; 85025; 85610; 86900; 86901; 87480; 87491; 87510; 87591; 87660; 93975; 99284; J2270

== ENCOUNTER → 2021-09-07 12:52 | Outpatient (BNVA) | payer OTHER, SELFPAY | PROVIDERS: Visit Provider Advanced Practice Midwife | DX: N84.0 Polyp of corpus uteri (principal); N83.292 Other ovarian cyst, left side; N93.9 Abnormal uterine and vaginal bleeding, unspecified | CPT/HCPCS: 99212 ==

== ENCOUNTER 2021-09-27 11:53 | Emergency (ER) | payer OTHER, SELFPAY | END 2021-09-27 15:24 | disposition left against medical advice (07) | PROVIDERS: Emergency Provider Emergency Medicine | DX: N93.8 Other specified abnormal uterine and vaginal bleeding (principal) ==

== ENCOUNTER 2021-10-04 13:01 | Outpatient (REF) | payer OTHER, SELFPAY | END 2021-10-04 13:02 | disposition home or self-care (01) | LOC: HO.LAB 13:01 | PROVIDERS: Visit Provider Obstetrics & Gynecology | DX: N93.9 Abnormal uterine and vaginal bleeding, unspecified (principal); N84.0 Polyp of corpus uteri | CPT/HCPCS: 88142; 99212 ==

== ENCOUNTER 2022-04-22 00:28 | Emergency (ER) | payer OTHER, SELFPAY ==
--- NOTE | ~2022-04-22 | XR_ITS ---
EXAMINATION: XR ANKLE, RIGHT CLINICAL INFORMATION: Ankle pain COMPARISON: None TECHNIQUE: AP, lateral, and mortise views of the right ankle. FINDINGS: There is an essentially nondisplaced fracture of the medial malleolus. Slightly displaced oblique fracture of the distal fibula is also present, with fracture line near the level of the tibiotalar articulation. Articular alignment across the ankle appears maintained. There is soft tissue swelling which is most prominent laterally. XR/XR ankle RT 2V IMPRESSION: Essentially nondisplaced fracture of the medial malleolus. Slightly displaced oblique fracture of the distal fibula.
[2022-04-22 00:39] VITALS: BP 120/68; PULSE 96; RESP 20; TEMP 37; O2SAT 97; BMI 32.9
--- NOTE | 2022-04-22 01:28 | PC.NURSE ---
PT A&Ox4, reports walking with heals on and rolling her ankle d/t broken tile at work. PT reports 01/02 R ankle pain. + distal pulse, unable to wiggle toes, or lift leg. R ankle warm to touch, no discoloration, swollen and painful to light touch. PT reports unable to ambulate.
[2022-04-22 02:00] VITALS: BP 117/64; PULSE 91; RESP 16; TEMP 36.7; O2SAT 97
[2022-04-22] MEDS: oxyCODONE HCl Immed Release 5 MG TABLET 10 MG PO (02:06)
--- NOTE | 2022-04-22 02:18 | ED.LOWEXIN ---
HPI - Extremity Injury (Lower) General Chief Complaint: Extremity Injury, Lower Stated Complaint: work related, fall Time Seen by Provider: 04/22/22 01:28 Source: patient Mode of arrival: ambulatory Limitations: no limitations History of Present Illness HPI Narrative: Apparently patient was working a tile was broken twisted her right ankle inwards with a near fall complaining of increased pain at the ankle joint unable to bear weight because of pain no prior injuries no other injuries Related Data Previous Rx's Medication Instructions Recorded acetaminophen 500 mg tablet 1,000 mg PO QID PRN fever or pain 09/02/21 (Tylenol Extra Strength) #14 tabs L norgest/E estradiol-E estrad 1 tab PO DAILY 84 days #84 ea 10/04/21 0.15 mg-30 mcg (84)/10 mcg(7) tabs,3mos (Seasonique) oxycodone-acetaminophen 5 mg-325 1 tab PO Q6H PRN pain #20 tabs 04/22/22 mg tablet (Percocet) Allergies Allergy/AdvReac Type Severity Reaction Status Date / Time No Known Allergies Allergy Verified 04/22/22 00:45 Review of Systems Review of Systems: Yes all other systems are reviewed and are negative PMFSH Past Medical History Medical History Ectopic Surgical History H/O plastic surgery Family History Family History Paternal Grandmother Cancer Social History Social History Alcohol intake: current Alcohol intake frequency: holidays/special occasions only Patient Tobacco Use Status: Never used Tobacco Smoked in Last 30 Days: No Use of substances other than those prescribed or required for medical reasons: No Substance Use Type: Marijuana Advance Directives: No Advance Directives Information Provided: Yes Patient : No Sexual orientation: Straight/Heterosexual Gender identity: Female Physical Exam Vital Signs: Vital Signs: Last Vital Signs Temp 98.0 F 04/22/22 02:00 Pulse 91 04/22/22 02:00 Resp 16 04/22/22 02:00 BP 117/64 04/22/22 02:00 Pulse Ox 97 04/22/22 02:00 O2 Del Method 04/22/22 02:00 BMI result Body Mass Index 32.9 Appearance: Alert. Oriented X3. No acute distress. Eyes: PERRLA, No Nystagmus ENT: Pharynx normal. Oral Mucosa moist ATNC Neck: Normal inspection. Neck supple. CVS: Normal heart rate and rhythm. Pulses normal. Respiratory: No respiratory distress. Equal air entry bilateral, Abdomen: Soft and nontender. Bowel sounds are present, Extremities:r ankle swollen with tenderness lateral malleolus neuro vs intact Neuro: Oriented X 3. Medications Administered Discontinued Medications Generic Name Dose Route Start Last Admin Trade Name Freq PRN Reason Stop Dose Admin Oxycodone HCl 10 mg 04/22/22 01:57 04/22/22 02:06 Oxycodone Hcl Immed Release 5 Mg Tablet PO 04/22/22 01:58 10 mg ONCE ONE Administration Medical Decision Making Radiology Impression Discussion of test interpretation with radiology: I have reviewed the radiologist's reading. Radiologist Impression: Essentially nondisplaced fracture of the medial malleolus. Slightly displaced oblique fracture of the distal fibula. Procedures Orthopedic Splinting/Casting Injury #1: Side: right Lower Extremity Injury Location: ankle Lower Extremity Immobilizer: posterior splint Other Orthopedic Equipment: crutches Discharge Plan Discharge Clinical Impression: Closed right ankle fracture Patient Disposition: Home, Self-Care Instructions: Ankle Fracture (ED) Additional Instructions: Wear the splint for support, use crutches Nonweightbearing until seen by Ortho Pain medicine as prescribed Prescriptions: New oxycodone-acetaminophen [Percocet] 5-325 mg tablet 1 tab PO Q6H PRN (Reason: pain) Qty: 20 0RF Rx Instructions: Partial Fill upon patient request. No Action acetaminophen [Tylenol Extra Strength] 500 mg tablet 1,000 mg PO QID PRN (Reason: fever or pain) Qty: 14 0RF L norgest/e.estradiol-e.estrad [Seasonique] 0.15 mg-30 mcg (84)/10 mcg (7) tablets,dose pack,3 month 1 tab PO DAILY 84 Days Qty: 84 0RF Referrals: Luis Miguel Lance MD [Physician] - 5 days Stand Alone Forms: Work/School Release Interventions: ED Discharge Assessment Last Done: 04/22/22 02:27
== END 2022-04-22 02:28 | disposition home or self-care (01) ==
PROVIDERS: Emergency Provider Internal Medicine; PCP Internal Medicine
DX: S82.51XA Displaced fracture of medial malleolus of right tibia, initial encounter for closed fracture (principal); X50.1XXA Overexertion from prolonged static or awkward postures, initial encounter; Y93.89 Activity, other specified; Y92.511 Restaurant or cafe as the place of occurrence of the external cause; Y99.0 Civilian activity done for income or pay
CPT/HCPCS: 29515; 73600; 99283; 99284

== ENCOUNTER 2022-04-27 08:01 | Outpatient (REF) | payer OTHER, SELFPAY ==
--- NOTE | ~2022-04-27 | XR_ITS ---
EXAMINATION: XR ANKLE, RIGHT CLINICAL INFORMATION: Pain, unspecified ankle joint. COMPARISON: X-ray of the right ankle April 22, 2022 TECHNIQUE: AP, lateral, and mortise views of the right ankle. FINDINGS: The previously noted ankle fracture involving the distal fibula and medial malleolus is unchanged in appearance and alignment. Slightly decreased soft tissue swelling. No new bone or joint abnormalities. XR/XR ankle RT min 3V IMPRESSION: Stable appearance of the right ankle fracture. Slightly decreased soft tissue swelling.
== END 2022-04-27 08:02 | disposition home or self-care (01) ==
LOC: HO.HOSX 08:01
PROVIDERS: Visit Provider Physician Assistant
DX: S82.841A Displaced bimalleolar fracture of right lower leg, initial encounter for closed fracture (principal)
CPT/HCPCS: 73610; 99202

== ENCOUNTER 2022-05-02 13:32 | Day surgery (SDC) | payer OTHER, SELFPAY ==
[2022-05-02] VITALS (8 sets, daily range): BP systolic 90–133; BP diastolic 50–86; PULSE 73–111; RESP 15–20; TEMP 36.1–36.6; O2SAT 96–99; BMI 32.9
--- NOTE | ~2022-05-02 | FL_ITS ---
EXAMINATION: XR FLUOROSCOPY WITH IMAGES CLINICAL INFORMATION: Right ankle fracture. COMPARISON: 04/27/2022 and 04/22/2022. TECHNIQUE: Fluoroscopy Supervised By: Dr. Luis Miguel Lance. Fluoroscopy Time: 0.1 minutes. Cumulative Dose: 0.612 mGy. DAP: 0.0106 mGycm2. Images: 3. FINDINGS: Images demonstrate intraoperative placement of 2 screws through the medial malleolus and sideplate and screws about the distal fibula. The ankle mortise appear in good approximation. FL/FL guidance in OR IMPRESSION: Intraoperative fluoroscopy for orthopedic procedure.
--- NOTE | 2022-05-02 13:58 | HO.ANESPROP2 ---
HPI - Anesthesia Eval Consult details Narrative: 26 F for right ankle ORIF PMFSH Active Problems Active Problems: All Active Problems (Updated 04/27/22 @ 10:48 by Flori Thompson) Bimalleolar fracture of right ankle (Acute) Complex cyst of left ovary (Acute) Abdominal pain (Acute) Endometrial polyp (Acute) Complex cyst of both ovaries (Acute) Abnormal uterine bleeding (Acute) Past Medical History Medical History Ectopic Family History Family History Paternal Grandmother Cancer Family history of problems with anesthesia: No Surgical History Surgical History H/O plastic surgery History of Problems with Anesthesia: No Social History Social History Alcohol intake: current Alcohol intake frequency: holidays/special occasions only Patient Tobacco Use Status: Never used Tobacco Use of substances other than those prescribed or required for medical reasons: Yes Substance Use Type: Marijuana Are you DNR?: No Advance Directives: No Advance Directives Information Provided: Yes Sexual orientation: Straight/Heterosexual Gender identity: Female Meds Allergies Allergy/AdvReac Type Severity Reaction Status Date / Time No Known Allergies Allergy Verified 04/27/22 10:29 Active Medications: Current Medications Cefazolin Sodium/Dextrose (Ancef) 2 gm in 50 mls @ 100 mls/hr IV PREOP ONE Stop: 05/02/22 14:02 Exam Exam Date and Time: May 02, 2022 [id number] Airway Mallampati Class: III TM Dist: >3cm Neck ROM: Full Loose/Missing/Broken Teeth: Yes Heart: S1,S2 Lungs: b/l breath sounds Assessment and Plan Assessment Anesthesia Assessment: Anesthesia Plan Discussed and Chart Reviewed Final Anesthetic Review Family History of Problems with Anesthesia: No History of Problems with Anesthesia: No NPO: Yes ASA Class: II Final Preanesthetic Review: Meds/Allgs Chart Reviewed, Consent Obtained/Reviewed and Anes Risks/Benef Reviewed Patient Risk: Intermediate Procedure Risk: Intermediate Anesthetic Plan Anesthetic Plan: GA and Regional Block Disposition: Standard PACU
[2022-05-02] MEDS: Lactated Ringers 1,000 ML 50 ML IVCONT (14:05)
[2022-05-02 14:23] LABS: UPreg QC Valid YES; Urine Pregnancy NEGATIVE (NEGATIVE)
--- NOTE | 2022-05-02 14:23 | MHC.SHP ---
Pre-Procedural Eval Section A Date of Service: 05/02/22 The patient is an INPATIENT: No Changes since office visit: No Cold of Flu in the past 2 weeks, No New Medical Problems, No Changes in Medication and No Patient answered all questions The History & Physical has been completed within 30 days and I have reviewed it.: Yes Section B Chief Complaint: Displaced bimalleolar fracture of right lower leg, Allergies: Allergies Allergy/AdvReac Type Severity Reaction Status Date / Time No Known Allergies Allergy Verified 04/27/22 10:29 Plan I have reviewed the history and physical and performed a pertinent physical examination on my patient. No changes have occurred unless specified. Time Spent With Patient Time: Total time managing care of this patient today ____ minutes.
--- NOTE | 2022-05-02 15:35 | PM.OP ---
Brief Operative Note Date of Service: 05/02/22 Pre-op diagnosis: Right ankle bimalleolar fracture Post-op diagnosis: same Procedure: ORIF right ankle bimall Implants: Kennerdell lateral locking plate [place]nerdell 4.0 partially threaded cannulated screws x 2 Surgeon: Luis Miguel Lance MD Anesthesia: GETA and regional Was an Machine Veneer Repairer used for this Procedure?: Yes Machine Veneer Repairer: Daniel Eckert Estimated blood loss (mL): 20 Tourniquet time (min): 40 IV fluids (mL): 1,000 Pathology: none sent Condition: stable Disposition: PACU
--- NOTE | 2022-05-05 13:40 | W.PM.OPN ---
Operative Note Operative Note Date of Service: 05/02/22 Narrative: Date of Service: 05/02/22 Pre-op diagnosis: Right ankle bimalleolar fracture Post-op diagnosis: same Procedure: ORIF right ankle bimall Implants: Sabinal lateral locking plate Rosario 4.0 partially threaded cannulated screws x 2 Surgeon: Luis Miguel Lance MD Anesthesia: GETA and regional Was an Crew Truck Driver used for this Procedure?: Yes Crew Truck Driver: Daniel Eckert Estimated blood loss (mL): 20 Tourniquet time (min): 40 IV fluids (mL): 1,000 Pathology: none sent Condition: stable Disposition: PACU Procedure in detail: Patient was brought to the operating room and placed supine on the operative table. All bony prominences were well padded and a time-out was called to identify proper site proper procedure proper surgeon. IV antibiotics per weight were administered. I began by exsanguinating limb is slightly tourniquet to 300 mm Hg. I then made a standard posterolateral incision over the fibula. Full-thickness flaps were taken down to the fibular shaft and distal fibula. The fracture was identified and cleaned with a combination of curette, rongeur and irrigation. A lobster claw was used to provisionally reduce the fracture and a 6 hole distal fibular locking plate was applied using standard AO technique. Biplanar fluoroscopy was used to confirm hardware position and fracture reduction. Once I was satisfied that both of these were acceptable I irrigated copiously and turned my attention to the medial side. The transverse medial malleolar fracture was identified after skin incision. Full-thickness skin flaps were developed and, With a sharp tenaculum, the fracture was reduced with a tenaculum. 2 threaded K-wires were then placed from distal to proximal and perpendicular to the fracture. Biplanar fluoroscopy was used to confirm positioning and then they were overdrilled and 2 40 mm 4.0 partially-threaded cannulated cancellous screws were placed across the fracture. I was satisfied with the position and the fracture reduction based on biplanar fluoroscopy. This syndesmosis was tested using external rotation test and was found to be stable. Therefore all instrumentation was removed and copious irrigation was performed. Absorbable suture and bozena were used for closure and the patient was placed into sterile dressings and a well-padded posterior splint. Tourniquet was let down and the patient was extubated brought to recovery room in stable condition there were no known complications.
== END 2022-05-02 17:37 | disposition home or self-care (01) ==
LOC: HO.SSS 13:32
PROVIDERS: Anesthesiology; PCP Internal Medicine; Visit Provider Orthopaedic Surgery
PROC: (CPT 27814; principal; 2022-05-02 15:10)
DX: S82.841A Displaced bimalleolar fracture of right lower leg, initial encounter for closed fracture (principal); M25.571 Pain in right ankle and joints of right foot; R20.2 Paresthesia of skin; X50.1XXA Overexertion from prolonged static or awkward postures, initial encounter; Y93.01 Activity, walking, marching and hiking; Y92.69 Other specified industrial and construction area as the place of occurrence of the external cause; Y99.0 Civilian activity done for income or pay; F12.90 Cannabis use, unspecified, uncomplicated
CPT/HCPCS: 27814; 81025; C1713; J0131; J0690; J1170; J1885; J2250; J2370; J2405; J2795; J3010

== ENCOUNTER → 2022-05-12 11:39 | Outpatient (BNVA) | payer OTHER, SELFPAY | PROVIDERS: PCP Internal Medicine; Visit Provider Physician Assistant | DX: S82.841D Displaced bimalleolar fracture of right lower leg, subsequent encounter for closed fracture with routine healing (principal) | CPT/HCPCS: 29405 ==

== ENCOUNTER 2022-06-06 12:57 | Outpatient (REF) | payer OTHER, SELFPAY ==
--- NOTE | ~2022-06-06 | XR_ITS ---
EXAMINATION: XR ANKLE, RIGHT CLINICAL INFORMATION: Pain in ankle. COMPARISON: Intraoperative digital images to 723 TECHNIQUE: AP, lateral, and mortise views of the right ankle. FINDINGS: There is a lateral fibular plate and screws and 2 medial malleolar screws stabilizing old fracture. There is no hardware loosening or recurrent fracture seen. The ankle mortise and subtalar joints are normal. XR/XR ankle RT min 3V IMPRESSION: 1. No acute fracture or dislocation. No hardware malfunction. 2. There is a lateral fibular plate and screws and 2 medial malleolar screws stabilizing old fracture.
== END 2022-06-06 12:58 | disposition home or self-care (01) ==
LOC: HO.HOSX 12:57
PROVIDERS: Visit Provider Physician Assistant
DX: S82.841D Displaced bimalleolar fracture of right lower leg, subsequent encounter for closed fracture with routine healing (principal); X58.XXXD Exposure to other specified factors, subsequent encounter
CPT/HCPCS: 73610

== ENCOUNTER 2022-06-12 09:05 | Outpatient (REF) | payer OTHER, SELFPAY ==
--- NOTE | ~2022-06-12 | XR_ITS ---
EXAMINATION: XR ANKLE, RIGHT CLINICAL INFORMATION: Pain. COMPARISON: Multiple priors, most recent right ankle radiographs dated 06/06/2022. TECHNIQUE: AP, lateral, and mortise views of the right ankle. FINDINGS: Redemonstration of a distal fibular stabilization plate with multiple fixation screws. Orthopedic screws across the medial malleolus. No hardware fracture. No perihardware lucency to suggest loosening or infection. The ankle mortise is maintained. No persistent fracture line. Mild degenerative cystic change within the medial talar dome which appears unchanged and could represent a nondisplaced osteochondral lesion versus osteopenia. Mild lateral subcutaneous edema. XR/XR ankle RT min 3V IMPRESSION: 1. Distal fibular and medial malleolar ORIF without evidence of hardware complication. 2. Mild degenerative cystic change within the medial talar dome, unchanged. 3. Mild lateral subcutaneous edema. No acute fracture or dislocation.
== END 2022-06-12 09:06 | disposition home or self-care (01) ==
LOC: HO.HOSX 09:05
PROVIDERS: Visit Provider Physician Assistant
DX: S82.841D Displaced bimalleolar fracture of right lower leg, subsequent encounter for closed fracture with routine healing (principal)
CPT/HCPCS: 73610

== ENCOUNTER 2022-06-19 14:22 | Outpatient (REF) | payer OTHER, SELFPAY ==
--- NOTE | ~2022-06-19 | XR_ITS ---
EXAMINATION: XR ANKLE, RIGHT CLINICAL INFORMATION: Fracture COMPARISON: Previous x-rays most recent 06/12/2022 TECHNIQUE: AP, lateral, and mortise views of the right ankle. FINDINGS: There is a plate and screws in the distal fibular shaft. There are 2 screws in the medial malleolus. Orthopedic hardware appears unchanged and intact. Medial malleolar fracture line no longer seen. Distal fibular fracture shaft fracture line still seen. Question subchondral cystic change in the medial dome of the talus versus osteopenia. Ankle mortise is otherwise normal. Soft tissues are normal. XR/XR ankle RT min 3V IMPRESSION: ORIF of right ankle fractures. Orthopedic hardware appears intact.
== END 2022-06-19 14:23 | disposition home or self-care (01) ==
LOC: HO.HOSX 14:22
PROVIDERS: Visit Provider Physician Assistant
DX: S82.841D Displaced bimalleolar fracture of right lower leg, subsequent encounter for closed fracture with routine healing (principal)
CPT/HCPCS: 73610

== ENCOUNTER → 2022-07-31 11:41 | Outpatient (BNVA) | payer SELFPAY | PROVIDERS: Visit Provider Physician Assistant ==

== ENCOUNTER 2022-09-11 11:01 | Outpatient (REF) | payer MEDICAID, SELFPAY | END 2022-09-11 11:02 | disposition home or self-care (01) | LOC: HO.HOSX 11:01 | PROVIDERS: Visit Provider Physician Assistant | DX: Z13.89 Encounter for screening for other disorder (principal) ==

== ENCOUNTER 2022-09-11 22:07 | Emergency (ER) | payer MEDICAID, SELFPAY ==
--- NOTE | ~2022-09-11 | US_ITS ---
EXAMINATION: US PELVIS CLINICAL INFORMATION: Lower abdominal pain. History of ovarian cyst. COMPARISON: Sudden pelvis and transvaginal. TECHNIQUE: Ultrasound of the pelvis is performed using both transabdominal and transvaginal transducers along with Doppler. Transvaginal imaging is performed due to inadequate visualization transabdominally. FINDINGS: Uterus: The uterus is anteverted and measures 7.2 x 3.9 x 6.2 cm. The double wall endometrial thickness is 1.3 cm. The uterus is smooth in contour and has normal myometrial echogenicity. No visible fibroid. Adnexa: Both ovaries are visualized. There is normal color flow to the adnexa. There is no ovarian torsion. There is no pelvic ascites or fluid collection. Right ovary measures 3.8 x 2.7 x 2.4 cm and volume 12.9 mL. There is anechoic cyst measuring 2.6 x 2.1 x 2.2 cm with septation. Left ovary measures 4.9 x 3.8 x 4.1 cm and volume 40.0 mL. There is anechoic cyst measuring 4.4 x 2.9 x 3.7 cm. There are septations suggestive of a complex cyst. Adjacent to the left ovary is a tubular structure fluid-filled likely small hydrosalpinx There is normal arterial and venous flow seen to both ovaries on Doppler exam. There is trace free fluid. US/US pelvic and transvaginal IMPRESSION: 1. Bilateral complex ovarian cysts. 2. Likely left hydrosalpinx. 3. The uterus is unremarkable. 4. There is trace free fluid in the cul-de-sac.
[2022-09-11 22:43] VITALS: BP 146/63; PULSE 87; RESP 16; TEMP 36.7; O2SAT 98; BMI 32.9
[2022-09-11 22:49] LABS: Hemoglobin 12.2 g/dl (12.0-16.0); Mean Corpuscular HGB Conc 30.5 g/dl (31.0-35.0); Mean Corpuscular Hemoglobin 23.9 pg (27.0-33.0); Mean Corpuscular Volume 78.3 fL (80.0-98.0); Mean Platelet Volume 11.2 fL (9.4-12.3); Platelet Count 281 X10*3/uL (160-400); Red Blood Count 5.11 X10*6/uL (4.20-5.50); Red Cell Distribution Width 15.1 % (11.0-16.0); White Blood Count 10.5 X10*3/uL (4.8-10.8)
[2022-09-11 23:08] LABS: Alanine Aminotransferase 11 U/L (0-31); Albumin Level 4.2 g/dL (3.5-5.0); Alkaline Phosphatase 106 U/L (39-117); Anion Gap 13 (12-20); Aspartate Amino Transferase 18 U/L (5-31); Bilirubin Total 0.3 mg/dL (0.0-1.0); Blood Urea Nitrogen 9 mg/dL (9-16); Calcium 9.6 mg/dL (8.4-10.2); Carbon Dioxide 24 mmol/L (22-29); Chloride 106 mmol/L (96-108); Creatinine Clr Calc Pharmacy 108.7; Estimated Glomerular Filt Rate > 60; Glucose Random 88 mg/dL (60-115); Lipase 27 U/L (8-78); Sodium 139 mmol/L (135-145); Total Protein 7.7 g/dL (6.5-8.0)
--- NOTE | 2022-09-12 00:23 | ED.ABDPAIN ---
HPI - Abdominal Pain General Chief Complaint: Abdominal Pain Stated Complaint: Abd pain Time Seen by Provider: 09/12/22 00:14 Source: patient Mode of arrival: ambulatory Limitations: no limitations History of Present Illness HPI narrative: Patient's history of ectopic 4 years ago and history of ovarian cyst complaining of pain in left lower abdomen for last 2 days patient had LMP 07/29/22 and missed her period this month feels slightly nauseated no urinary symptom Related Data Previous Rx's Medication Instructions Recorded acetaminophen 500 mg tablet 1,000 mg PO QID PRN fever or pain 09/02/21 (Tylenol Extra Strength) #14 tabs L norgest/E estradiol-E estrad 1 tab PO DAILY 84 days #84 ea 10/04/21 0.15 mg-30 mcg (84)/10 mcg(7) tabs,3mos (Seasonique) ibuprofen 600 mg tablet 600 mg PO Q6H PRN fever or pain 09/12/22 #30 tabs Allergies Allergy/AdvReac Type Severity Reaction Status Date / Time No Known Allergies Allergy Verified 06/19/22 11:21 Review of Systems Review of Systems Yes all other systems are reviewed and are negative [facility] Past Medical History Medical History Ectopic Surgical History H/O plastic surgery Family History Family History Paternal Grandmother Cancer Social History Social History Alcohol intake: current Alcohol intake frequency: holidays/special occasions only Patient Tobacco Use Status: Never used Tobacco Substance Use Type: Marijuana Advance Directives: No Advance Directives Information Provided: Yes Sexual orientation: Straight/Heterosexual Gender identity: Female Physical Exam ED Vital Signs: Vital Signs - 24 hr 09/11/22 22:43 09/12/22 00:50 Temperature 98.0 F 98.9 F Pulse Rate 87 74 Respiratory Rate 16 16 Blood Pressure 146/63 H 125/77 Pulse Oximetry 98 100 Oxygen Delivery Method Room Air Room Air BMI result Body Mass Index 32.9 Appearance: Alert. Oriented X3. No acute distress. Eyes: No pallor ENT: Pharynx normal. Oral Mucosa moist Neck: Normal inspection. Neck supple. CVS: Normal heart rate and rhythm. Pulses normal. Respiratory: No respiratory distress. Equal air entry bilateral, no wheezing/rales/rhonchi Abdomen: Soft , tenderness left lower quadrant with guarding no rebound tenderness. Bowel sounds are present, no mass palpable, no CVA tenderness Skin: Skin warm and dry. Normal skin color. Normal skin turgor. Extremities: No lower extremity edema. No calf tenderness Neuro: Oriented X 3. No motor deficit. Medical Decision Making Medical Decision Making [facility] Narrative: Patient with bilateral ovarian cyst with complex cyst on the left side likely the cause of the pain patient does have history of same in the past advised to follow with rewinder operator will give ibuprofen for pain Lab Data [facility] Lab Attestation statement: I reviewed the patient's lab results. 09/11/22 22:43 09/11/22 22:44 Labs: Lab Results 09/11/22 09/11/22 09/12/22 Range/Units 22:43 22:44 00:24 WBC 10.5 (4.8-10.8) X10*3/uL RBC 5.11 (4.20-5.50) X10*6/uL Hgb 12.2 (12.0-16.0) g/dl Hct 40.0 (37.0-47.0) % MCV 78.3 L (80.0-98.0) fL MCH 23.9 L (27.0-33.0) pg MCHC 30.5 L (31.0-35.0) g/dl RDW 15.1 (11.0-16.0) % Plt Count 281 (160-400) X10*3/uL MPV 11.2 (9.4-12.3) fL Absolute Nucleated RBC 0.000 (0.0-0.012) X10*3/uL Nucleated RBC % (auto) 0.0 (0.0-0.2) /100WBC Sodium 139 (135-145) mmol/L Potassium 4.0 (3.3-5.1) mmol/L Chloride 106 (96-108) mmol/L Carbon Dioxide 24 (22-29) mmol/L Anion Gap 13 (12-20) BUN 9 (9-16) mg/dL Creatinine 0.79 (0.5-1.4) mg/dL Estim Creat Clear Calc 108.7 Estimated GFR > 60 Random Glucose 88 (60-115) mg/dL Calcium 9.6 (8.4-10.2) mg/dL Total Bilirubin 0.3 (0.0-1.0) mg/dL AST 18 (5-31) U/L ALT 11 (0-31) U/L Alkaline Phosphatase 106 (39-117) U/L Total Protein 7.7 (6.5-8.0) g/dL Albumin 4.2 (3.5-5.0) g/dL Lipase 27 (8-78) U/L Beta HCG, Quant mIU/mL Urine Color Urine Appearance Urine pH (5.0-9.0) Ur Specific [place] (1.005-1.025) Urine Protein (Neg-Trace) mg/dL Urine Glucose (UA) (Negative) mg/dL Urine Ketones (Negative) mg/dL Urine Blood (Negative) Urine Nitrite (Negative) Ur Leukocyte Esterase (Negative) Urine Test NEGATIVE (NEGATIVE) 09/12/22 09/12/22 Range/Units 00:24 01:41 WBC (4.8-10.8) X10*3/uL RBC (4.20-5.50) X10*6/uL Hgb (12.0-16.0) g/dl Hct (37.0-47.0) % MCV (80.0-98.0) fL MCH (27.0-33.0) pg MCHC (31.0-35.0) g/dl RDW (11.0-16.0) % Plt Count (160-400) X10*3/uL MPV (9.4-12.3) fL Absolute Nucleated RBC (0.0-0.012) X10*3/uL Nucleated RBC % (auto) (0.0-0.2) /100WBC Sodium (135-145) mmol/L Potassium (3.3-5.1) mmol/L Chloride (96-108) mmol/L Carbon Dioxide (22-29) mmol/L Anion Gap (12-20) BUN (9-16) mg/dL Creatinine (0.5-1.4) mg/dL Estim Creat Clear Calc Estimated GFR Random Glucose (60-115) mg/dL Calcium (8.4-10.2) mg/dL Total Bilirubin (0.0-1.0) mg/dL AST (5-31) U/L ALT (0-31) U/L Alkaline Phosphatase (39-117) U/L Total Protein (6.5-8.0) g/dL Albumin (3.5-5.0) g/dL Lipase (8-78) U/L Beta HCG, Quant < 2 mIU/mL Urine Color Yellow Urine Appearance Clear Urine pH 7.5 (5.0-9.0) Ur Specific [place] 1.015 (1.005-1.025) Urine Protein Negative (Neg-Trace) mg/dL Urine Glucose (UA) Negative (Negative) mg/dL Urine Ketones Negative (Negative) mg/dL Urine Blood Negative (Negative) Urine Nitrite Negative (Negative) Ur Leukocyte Esterase Negative (Negative) Urine Test (NEGATIVE) Radiology Impression Discussion of test interpretation with radiology: I have reviewed the radiologist's reading. Radiologist Impression: US/US pelvic and transvaginal IMPRESSION: 1.? Bilateral complex ovarian cysts. 2.? Likely left hydrosalpinx. 3.? The uterus is unremarkable. 4.? There is trace free fluid in the cul-de-sac. ? Discharge Plan Discharge Clinical Impression: Complex cyst of left ovary Patient Disposition: Home, Self-Care Instructions: Ovarian Cyst (ED) Additional Instructions: You have cysts on both ovaries and need to be evaluated by Gynecology Ibuprofen for pain Follow-up with rewinder operator Report to ER for worsening of the pain Tiene quistes en ambos ovarios y necesita ser evaluado por [facility]?a ibuprofeno para el dolor Seguimiento con ginec?logo Informe a urgencias por empeoramiento del dolor Prescriptions: New ibuprofen 600 mg tablet 600 mg PO Q6H PRN (Reason: fever or pain) Qty: 30 0RF No Action acetaminophen [Tylenol Extra Strength] 500 mg tablet 1,000 mg PO QID PRN (Reason: fever or pain) Qty: 14 0RF L norgest/e.estradiol-e.estrad [Seasonique] 0.15 mg-30 mcg (84)/10 mcg (7) tablets,dose pack,3 month 1 tab PO DAILY 84 Days Qty: 84 0RF Referrals: Jose Capps MD [Physician] - 1 week Print Language: Serbian
[2022-09-12 00:38] LABS: Appearance Urine Clear; Color Urine Yellow; Glucose Urine UA Negative (Negative); Leukocyte Esterase Urine Negative (Negative); Nitrite Urine Negative (Negative); PH 7.5 (5.0-9.0); Specific Gravity - Urine 1.015 (1.005-1.025); Urine Blood Negative (Negative); Urine Ketones Negative (Negative); Urine Protein Negative (Neg-Trace)
[2022-09-12 00:39] LABS: UPreg QC Valid YES; Urine Pregnancy NEGATIVE (NEGATIVE)
[2022-09-12 00:50] VITALS: BP 125/77; PULSE 74; RESP 16; TEMP 37.2; O2SAT 100
[2022-09-12 02:19] LABS: HCG Quantitative < 2 mIU/mL
[2022-09-12] MEDS: Ibuprofen 600 MG TABLET PO (02:59)
== END 2022-09-12 03:16 | disposition home or self-care (01) ==
PROVIDERS: Emergency Provider Internal Medicine
DX: N83.201 Unspecified ovarian cyst, right side (principal); N83.202 Unspecified ovarian cyst, left side; R10.2 Pelvic and perineal pain; Z79.899 Other long term (current) drug therapy
CPT/HCPCS: 36415; 76830; 76856; 80053; 81003; 81025; 83690; 84702; 85027; 99284

== ENCOUNTER 2022-10-13 11:24 | Outpatient (AMB) | payer MEDICAID, SELFPAY ==
--- NOTE | 2022-10-13 11:28 | A.OFFVIS_ITS ---
Intake Vital Signs 10/13/22 11:31 Height 5 ft 2 in Weight 180 lb BMI 32.9 Intake Visit Reasons: OV - Right Ankle ORIF, 05/02/22 NE Intake Note: Krystal is a 26 year old female who presents today for a follow up appointment s/p Right Ankle ORIF 05/02/22. Patient reports PT is letting her know that she has to keep her boot on at all times. She is having c/o lower back pain and she was wondering if it could be from her ankle. Denies numbness and tingling. Allergies No Known Allergies Allergy (Verified 10/13/22 11:31) HPI OV - Right Ankle ORIF, 05/02/22 NE HPI Details 26-year-old female, who is Faroese speaking, presents in the office today 5 months status post post right ankle bimalleolar ORIF, which was performed on 05/02/[address] Lance. The patient reports physical therapy instructed her to keep the boot on at all times. She denies numbness or tingling. Patient reports chronic lower back pain. She was wondering if this was from her ankle. [facility] Medical History Ectopic Surgical History H/O plastic surgery Family History Paternal Grandmother Cancer Social History Alcohol intake: current Alcohol intake frequency: holidays/special occasions only Patient Tobacco Use Status: Never used Tobacco Substance Use Type: Marijuana Sexual orientation: Straight/Heterosexual Gender identity: Female Review of Systems Const All systems reviewed & are unremarkable except as noted in HPI and below Physical Exam Vital Signs: BMI result Body Mass Index 32.9 Const General: cooperative and no acute distress Orientation/consciousness: patient oriented x3 Resp Effort & Inspection: normal respiratory effort and able to speak in complete sentences Cardio Rate: regular rate Peripheral pulses: Peripheral pulses 2+ throughout GI Palpation (GI): Soft to palpation Skin Lesions: no lesions Rashes: no rashes Neuro General: patient oriented x3 Extrem Other: Right ankle: Normal to inspection. No ecchymosis, erythema, or drainage. Incision site is clean, dry, and intact. Hypersensitive to touch. Able to dorsiflex and plantarflex with stiffness. Sensation intact. Pedal pulse intact. Psych Mental Status: mental status grossly normal Assessment & Plan Assessment & Plan (1) Bimalleolar fracture of right ankle: Comment: right ankle bimalleolar ORIF 05/02/2022 NE Code(s): S82.841A - Displaced bimalleolar fracture of right lower leg, initial encounter for closed fracture Plan Ms. Rafael Muñoz is a 26-year-old female, who is Faroese speaking, presents in the office today 5 months status post post right ankle bimalleolar ORIF, which was performed on 05/02/[address] Lance. The patient reports physical therapy instructed her to keep the boot on at all times. She denies numbness or tingling. Patient reports chronic lower back pain. She was wondering if this was from her ankle. The patient presented to the office in the boot again. I educated her that she needs to come out of the boot. She confirms she is attending physical therapy in [place]. She will continue to work with physical therapy on ROM. Follow up will be in 6 weeks, or sooner if needed. Patient Instructions: Scribed for Magda West PA-C by Flori Thompson phlebotomist medical lab assistant, on 10/13/2022 at 11:29 am, EST. Your attestation Coding Level of Care Code Est Pt Level 3 (79533) Diagnoses Bimalleolar fracture of right ankle S82.841A
[2022-10-13 11:31] VITALS: BMI 32.9
== END 2022-10-13 12:06 | disposition home or self-care (01) ==
PROVIDERS: Visit Provider Physician Assistant
DX: S82.841A Displaced bimalleolar fracture of right lower leg, initial encounter for closed fracture (principal)
CPT/HCPCS: 99213

== ENCOUNTER → 2022-10-13 11:24 | Outpatient (BNVA) | payer MEDICAID, SELFPAY | PROVIDERS: Visit Provider Physician Assistant | DX: S82.841D Displaced bimalleolar fracture of right lower leg, subsequent encounter for closed fracture with routine healing (principal) | CPT/HCPCS: 99213 ==

== ENCOUNTER 2022-11-22 09:20 | Outpatient (REF) | payer MEDICAID, SELFPAY | END 2022-11-22 09:21 | disposition home or self-care (01) | LOC: HO.HOSX 09:20 | PROVIDERS: Visit Provider Physician Assistant | DX: Z13.89 Encounter for screening for other disorder (principal) ==

== ENCOUNTER 2023-02-26 21:07 | Emergency (ER) | payer SELFPAY ==
[2023-02-26 21:27] VITALS: BP 127/85; PULSE 85; RESP 20; TEMP 37.1; O2SAT 98; BMI 34.2
--- NOTE | 2023-02-26 21:28 | ED_ITS ---
HPI - General Adult General Chief complaint: General Medical Stated complaint: lower abd pain, vaginal bleeding Source: patient Mode of arrival: ambulatory Limitations: no limitations History of Present Illness HPI narrative: Patient is a 27 year old assigned female at with a history of abnormal uterine bleeding and ectopic presenting to the emergency department today with multiple positive tests and vaginal bleeding. Patient states that over the last 4 days she has had excessive vaginal bleeding and last week she took multiple tests that were positive. Patient denies any dizziness, lightheadedness, abdominal pain, nausea, vomiting, fever, chills, blurry vision, double vision, loss of vision, chest pain, difficulty breathing, shortness of breath, back pain, night sweats, pain with urination, increased urinary frequency, increased urinary urgency, blood in her stool, syncope or a near syncopal episode, recent trauma or falls, bowel incontinence, bladder incontinence, bowel retention, bladder retention, or any other complaints at this time. Onset (ago): day(s) Relieving factors: none Exacerbating factors: none Associated symptoms: denies other symptoms Treatments prior to arrival: none Related Data Previous Rx's Medication Instructions Recorded acetaminophen 500 mg tablet 1,000 mg (2 x 500 mg) PO QID PRN 09/02/21 (Tylenol Extra Strength) fever or pain #14 tabs L norgest/E estradiol-E estrad 1 tab PO DAILY 84 days #84 ea 10/04/21 0.15 mg-30 mcg (84)/10 mcg(7) tabs,3mos (Seasonique) ibuprofen 600 mg tablet 600 mg PO Q6H PRN fever or pain 09/12/22 #30 tabs Allergies Allergy/AdvReac Type Severity Reaction Status Date / Time No Known Allergies Allergy Verified 10/13/22 11:31 Review of Systems 2 Constitutional: Constitutional: Reports no additional constitutional complaints, Denies chills, Denies fever(s) and Denies night sweats Eyes: Eyes: Reports no additional eye complaints, Denies blurry vision, Denies change in vision, Denies diplopia, Denies eye discharge, Denies loss of vision and Denies eye pain ENT: Denies dizziness Cardiovascular: Cardiovascular: Reports no additional cardiovascular complaints, Denies chest pain, Denies lightheadedness, Denies Loss of Consciousness and Denies dyspnea Respiratory: Respiratory: Reports no additional respiratory complaints and Denies dyspnea Gastrointestinal: Gastrointestinal: Reports no additional gastrointestinal complaints, Denies abdominal pain, Denies melena, Denies hematochezia, Denies change in bowel habits and Denies change in stool character Genitourinary: Genitourinary: Denies urinary frequency, Denies dysuria, Denies urinary incontinence, Denies urinary hesitancy and Denies urinary urgency C omments: vaginal bleeding Musculoskeletal: Musculoskeletal: Reports no additional musculoskeletal complaints, Denies numbness and Denies tingling Neurologic: Denies dizziness, Denies loss of vision, Denies numbness and Denies tingling Psychiatric: Psychiatric: Reports no additional psychiatric complaints Endocrine: Endocrine: Reports no additional endocrine complaints Hematologic/Lymphatic: Hematologic/Lymphatic: Reports no additional hematologic/lymphatic complaints Allergic/Immunologic: Allergic/Immunologic: Reports no additional allergic/immunologic complaints PMFSH Past Medical History Attestation statement: The following information was validated with the patient. Source: old records reviewed and nursing notes reviewed Medical History Bimalleolar fracture of right ankle Complex cyst of left ovary Abdominal pain Ectopic Surgical History H/O plastic surgery Family History Family History Paternal Grandmother Cancer Social History Social History Alcohol intake: current Alcohol intake frequency: holidays/special occasions only Patient Tobacco Use Status: Never used Tobacco Substance Use Type: Marijuana Advance Directives: No Advance Directives Information Provided: No Sexual orientation: Straight/Heterosexual Gender identity: Female Physical Exam ED Vital Signs: Vital Signs - 24 hr 02/26/23 21:27 Temperature 98.7 F Pulse Rate 85 Respiratory Rate 20 Blood Pressure 127/85 Pulse Oximetry 98 Oxygen Delivery Method Room Air BMI result Body Mass Index 34.2 Const General: cooperative, no acute distress, alert and awake Nutritional Appearance: well nourished Orientation/consciousness: patient oriented x3 Limitations: no limitations HENMT Head: Yes normal to inspection and Yes atraumatic Ears: hearing grossly normal bilaterally and external ears normal General nose exam: Normal external nose present, no nasal discharge noted and no epistaxis Face and sinus: Yes normal facial exam, No abrasion and No laceration Mouth: Normal oral and palatal mucosa present, no drooling and no muffled voice Eyes General: appearance normal, both eyes and all related structures Periorbital: periorbital findings normal Eyelids: Yes eyelids normal Conjunctivae: conjunctivae normal Pupils: Equal, round and reactive pupils present EOM: EOMs intact bilaterally Neck Neck: Yes normal visual inspection, Yes full ROM and Yes no lymphadenopathy Chest Chest palpation & inspection: normal inspection of the chest Resp Effort & Inspection: normal respiratory effort and able to speak in complete sentences GI Inspection: Yes normal to inspection Neuro General: patient oriented x3 and moves all extremities Cranial nerves: Yes Equal, round and reactive pupils present Cognition (Neuro): normal cognition Motor exam (neuro): 5/5 motor strength present throughout Sensory Exam: Normal double simultaneous stimulation for sensation Coordination: [id number] test normal Extrem General: Yes normal to inspection, Yes full ROM and Yes capillary refill normal Psych Appearance: grossly normal Mental Status: mental status grossly normal Affect: normal affect Attitude: cooperative Thought process: Normal thought process present Thought content: Normal thought content present Insight: Good insight present (Psych) Course Course Course Narrative: RME performed by Page Esparza PA-C. Patient is a 27 year old assigned female at presenting to the emergency department with positive test at home, vaginal bleeding, and abdominal pain. Labs and imaging ordered. Patient placed back in the waiting room pending room availability and results. Medical Decision Making Medical Decision Making [facility] Narrative: Patient is a 27 year old assigned female at with a history of ectopic and abnormal uterine bleeding presenting to the emergency department today with vaginal bleeding and positive at home tests. Patient's limited physical exam performed in triage was unremarkable. Patient's blood work was unremarkable, including an HCG of <2. Patient left the department without completing treatment. Patient left the department before myself or any of the other emergency department clinicians could explain or review physical exam findings, test results, need or lack there of for additional testing, treatment options, or a treatment plan. Differential Diagnosis Differential Diagnoses: The differential diagnosis associated with the presentation includes Ectopic Abnormal uterine bleeding Miscarriage Admission/Observation Consideration of admission/observation: Escalation of care including admission/observation considered Patient left the department without completing treatment and before an admission decision could be made. Lab Data [facility] Lab Attestation statement: I reviewed the patient's lab results. My interpretation of these studies and their corresponding values is that they are grossly normal. 02/26/23 21:49 02/26/23 21:49 Labs: Lab Results 02/26/23 Range/Units 21:49 WBC 12.1 H (4.8-10.8) X10*3/uL RBC 5.21 (4.20-5.50) X10*6/uL Hgb 12.7 (12.0-16.0) g/dl Hct 41.4 (37.0-47.0) % MCV 79.5 L (80.0-98.0) fL MCH 24.4 L (27.0-33.0) pg MCHC 30.7 L (31.0-35.0) g/dl RDW 14.6 (11.0-16.0) % Plt Count 250 (160-400) X10*3/uL MPV 11.6 (9.4-12.3) fL Immature Gran % (Auto) 0.2 (0.0-0.4) % Neut % (Auto) 71.5 (45-73) % Lymph % (Auto) 22.1 (20-40) % [place] % (Auto) 5.0 (2-11) % Eos % (Auto) 0.7 (0-4) % Baso % (Auto) 0.5 (0-2) % Lymph # (Auto) 2.7 (1.2-4.9) X10*3/uL [place] # (Auto) 0.6 (0.1-1.2) X10*3/uL Eos # (Auto) 0.1 (0.0-0.4) X10*3/uL Baso # (Auto) 0.1 (0.0-0.2) X10*3/uL Abs Immat Gran (auto) 0.03 (0.00-0.03) X10*3/uL Absolute Neuts (auto) 8.6 H (2.0-8.3) x10*3/uL Absolute Nucleated RBC 0.000 (0.0-0.012) X10*3/uL Nucleated RBC % (auto) 0.0 (0.0-0.2) /100WBC PT 11.6 (11.1-13.3) SEC INR 1.0 (0.9-1.1) APTT 29.3 (26.0-36.4) SEC Sodium 140 (135-145) mmol/L Potassium 4.1 (3.3-5.1) mmol/L Chloride 105 (96-108) mmol/L Carbon Dioxide 25 (22-29) mmol/L Anion Gap 14 (12-20) BUN 12 (9-16) mg/dL Creatinine 0.76 (0.5-1.4) mg/dL Estim Creat Clear Calc 114.3 Estimated GFR > 60 Random Glucose 121 H (60-115) mg/dL Calcium 9.4 (8.4-10.2) mg/dL Magnesium 1.9 (1.6-2.6) mg/dL Total Bilirubin 0.2 (0.0-1.0) mg/dL AST 18 (5-31) U/L ALT 13 (0-31) U/L Alkaline Phosphatase 113 (39-117) U/L Total Protein 8.1 H (6.5-8.0) g/dL Albumin 4.4 (3.5-5.0) g/dL Beta HCG, Quant < 2 mIU/mL Influenza Type A (PCR) NEGATIVE (Negative) Influenza Type B (PCR) NEGATIVE (Negative) RSV RNA Qual (PCR) NEGATIVE (Negative) SARS-CoV-2 RNA (RT-PCR) NEGATIVE (Negative) Discharge Plan Discharge Clinical Impression: Vaginal bleeding Patient Disposition: Left W/O Completing Treatment Prescriptions: No Action acetaminophen [Tylenol Extra Strength] 500 mg tablet 1,000 mg PO QID PRN (Reason: fever or pain) Qty: 14 0RF ibuprofen 600 mg tablet 600 mg PO Q6H PRN (Reason: fever or pain) Qty: 30 0RF L norgest/e.estradiol-e.estrad [Seasonique] 0.15 mg-30 mcg (84)/10 mcg (7) tablets,dose pack,3 month 1 tab PO DAILY 84 Days Qty: 84 0RF Discharge Date/Time: 02/26/23 23:14
[2023-02-26 21:56] LABS: MANUAL DIFF FLAG NO
[2023-02-26 22:04] LABS: Prothrombin Time 11.6 SEC (11.1-13.3)
[2023-02-26 22:07] LABS: Basophils Absolute Auto 0.1 X10*3/uL (0.0-0.2); Basophils Percent Auto 0.5 % (0-2); Eosinophils Absolute Auto 0.1 X10*3/uL (0.0-0.4); Eosinophils Percent Auto 0.7 % (0-4); Hematocrit 41.4 % (37.0-47.0); Hemoglobin 12.7 g/dl (12.0-16.0); Imm Gran Abs Auto 0.03 X10*3/uL (0.00-0.03); Imm Gran Pct Auto 0.2 % (0.0-0.4); Lymphocytes Absolute Auto 2.7 X10*3/uL (1.2-4.9); Lymphocytes Percent Auto 22.1 % (20-40); Mean Corpuscular HGB Conc 30.7 g/dl (31.0-35.0); Mean Corpuscular Hemoglobin 24.4 pg (27.0-33.0); Mean Corpuscular Volume 79.5 fL (80.0-98.0); Mean Platelet Volume 11.6 fL (9.4-12.3); Monocytes Absolute Auto 0.6 X10*3/uL (0.1-1.2); Neutrophils Absolute Auto 8.6 x10*3/uL (2.0-8.3); Neutrophils Percent Auto 71.5 % (45-73); Partial Thromboplastin Time 29.3 SEC (26.0-36.4); Platelet Count 250 X10*3/uL (160-400); Red Blood Count 5.21 X10*6/uL (4.20-5.50); Red Cell Distribution Width 14.6 % (11.0-16.0); White Blood Count 12.1 X10*3/uL (4.8-10.8)
[2023-02-26 22:19] LABS: Alanine Aminotransferase 13 U/L (0-31); Albumin Level 4.4 g/dL (3.5-5.0); Alkaline Phosphatase 113 U/L (39-117); Anion Gap 14 (12-20); Aspartate Amino Transferase 18 U/L (5-31); Bilirubin Total 0.2 mg/dL (0.0-1.0); Blood Urea Nitrogen 12 mg/dL (9-16); Calcium 9.4 mg/dL (8.4-10.2); Carbon Dioxide 25 mmol/L (22-29); Chloride 105 mmol/L (96-108); Creatinine Clr Calc Pharmacy 114.3; Estimated Glomerular Filt Rate > 60; Glucose Random 121 mg/dL (60-115); HCG Quantitative < 2 mIU/mL; Magnesium 1.9 mg/dL (1.6-2.6); Potassium 4.1 mmol/L (3.3-5.1); Sodium 140 mmol/L (135-145); Total Protein 8.1 g/dL (6.5-8.0)
[2023-02-26 22:32] LABS: Influenza A PCR NEGATIVE (Negative); Influenza B PCR NEGATIVE (Negative); Resp Syncy Virus RNA Qual PCR NEGATIVE (Negative); SARS COV2 PCR INHOUSE NEGATIVE (Negative)
== END 2023-02-26 23:14 | disposition left against medical advice (07) ==
LOC: HO.ED 23:13
PROVIDERS: Physician Assistant Medical; Emergency Provider Emergency Medicine
DX: N93.8 Other specified abnormal uterine and vaginal bleeding (principal); R10.2 Pelvic and perineal pain; Z20.822 Contact with and (suspected) exposure to COVID-19; Z20.828 Contact with and (suspected) exposure to other viral communicable diseases; Z79.899 Other long term (current) drug therapy
CPT/HCPCS: 0241U; 36415; 80053; 83735; 84702; 85025; 85610; 85730; 99281; 99283

== ENCOUNTER 2024-05-06 06:39 | Emergency (ER) | payer MEDICAID, SELFPAY ==
--- NOTE | 2024-05-06 | ECG_ITS ---
Test Reason : CHEST PAIN Blood Pressure : */* mmHG Vent. Rate : 94 BPM Atrial Rate : 94 BPM P-R Int : 146 ms QRS Dur : 90 ms QT Int : 336 ms P-R-T Axes : 60 32 39 degrees QTcB Int : 420 ms Normal sinus rhythm Possible Left atrial enlargement Cannot rule out Anterior infarct , age undetermined Abnormal ECG No previous ECGs available Referred By: Generic ED Physician Electronically Signed By: MICKI MUSTAFA MD
--- NOTE | ~2024-05-06 | XR_ITS ---
CLINICAL HISTORY: chest pain x1 week 2 view chest x-ray Comparison: CT/SR - CT ABDOMEN PELVIS WO CON - 09/02/21 17:10 EDT Findings: The lungs are clear. Heart size is normal. No acute fracture. IMPRESSION: 1. No acute findings. This document has been electronically signed by: Elliot Cabrera MD on 05/06/2024 08:01:56
[2024-05-06 06:50] VITALS: BP 148/82; PULSE 97; RESP 17; TEMP 37; O2SAT 100; BMI 22.3
[2024-05-06 07:44] LABS: MANUAL DIFF FLAG NO
[2024-05-06 07:46] LABS: Basophils Percent Auto 0.3 % (0-2); Eosinophils Absolute Auto 0.1 X10*3/uL (0.0-0.4); Eosinophils Percent Auto 0.6 % (0-4); Hematocrit 41.2 % (37.0-47.0); Imm Gran Abs Auto 0.04 X10*3/uL (0.00-0.03); Imm Gran Pct Auto 0.3 % (0.0-0.4); Lymphocytes Absolute Auto 2.8 X10*3/uL (1.2-4.9); Lymphocytes Percent Auto 22.4 % (20-40); Mean Corpuscular HGB Conc 31.6 g/dl (31.0-35.0); Mean Corpuscular Hemoglobin 25.7 pg (27.0-33.0); Mean Corpuscular Volume 81.4 fL (80.0-98.0); Mean Platelet Volume 11.2 fL (9.4-12.3); Monocytes Absolute Auto 0.9 X10*3/uL (0.1-1.2); Monocytes Percent Auto 6.9 % (2-11); Neutrophils Absolute Auto 8.6 x10*3/uL (2.0-8.3); Neutrophils Percent Auto 69.5 % (45-73); Platelet Count 242 X10*3/uL (160-400); Red Blood Count 5.06 X10*6/uL (4.20-5.50); Red Cell Distribution Width 13.7 % (11.0-16.0); White Blood Count 12.4 X10*3/uL (4.8-10.8)
[2024-05-06 08:11] LABS: Alanine Aminotransferase 17 U/L (0-31); Alkaline Phosphatase 103 U/L (39-117); Anion Gap 12 (12-20); Aspartate Amino Transferase 24 U/L (5-31); Bilirubin Direct < 0.2 mg/dL (0.0-0.5); Bilirubin Total 0.2 mg/dL (0.0-1.0); Blood Urea Nitrogen 6 mg/dL (9-16); Carbon Dioxide 23 mmol/L (22-29); Chloride 109 mmol/L (96-108); Creatinine Clr Calc Pharmacy 102.2; Estimated Glomerular Filt Rate > 60; Glucose Random 93 mg/dL (60-115); HCG Quantitative < 2 mIU/mL; Potassium 4.4 mmol/L (3.3-5.1); Sodium 140 mmol/L (135-145); Troponin-I High Sensitivity < 2.7 ng/L (<3.5-17.0)
[2024-05-06 08:24] LABS: Influenza A PCR NEGATIVE (Negative); Influenza B PCR NEGATIVE (Negative); Resp Syncy Virus RNA Qual PCR NEGATIVE (Negative); SARS COV2 PCR INHOUSE NEGATIVE (Negative)
== END 2024-05-06 19:15 | disposition left against medical advice (07) ==
LOC: HO.ED 18:39
PROVIDERS: Emergency Provider Emergency Medicine
DX: R07.89 Other chest pain (principal); Z79.899 Other long term (current) drug therapy; Z03.818 Encounter for observation for suspected exposure to other biological agents ruled out
CPT/HCPCS: 0241U; 36415; 71046; 80048; 80076; 84484; 84702; 85025; 93005; 99281; 99283

== ENCOUNTER → 2024-05-06 06:44 | Outpatient (BNV) | payer SELFPAY | PROVIDERS: Visit Provider Internal Medicine Cardiovascular Disease | DX: R94.31 Abnormal electrocardiogram [ECG] [EKG] (principal) | CPT/HCPCS: 93010 ==

== ENCOUNTER → 2024-05-06 07:45 | Outpatient (BNV) | payer SELFPAY | PROVIDERS: Visit Provider Radiology Diagnostic Radiology | DX: R07.9 Chest pain, unspecified (principal) | CPT/HCPCS: 71046 ==